=== PATIENT | female | born 1965 | race Caucasian/White ===

== ENCOUNTER 2016-09-13 07:09 | Emergency (ER) | payer MEDICARE ==
[2016-09-13 07:18] VITALS: BP 120/73; PULSE 86; RESP 20; TEMP 97.8
[2016-09-13] MEDS ORDERED: SODIUM CHLORIDE 0.9% 1,000 ML IV STA ×2 (07:41→08:08)
[2016-09-13 07:55] LABS: Basophils # (A) 0.1 k/uL (0-0.2); Basophils % (A) 1 %; CHCM 34.3; Eosinophils # (A) 0.3 k/uL (0-0.7); Eosinophils % (A) 3 %; HCT 45.4 % (34.0-46.0); HGB 15.1 gm/dL (11.4-16.0); Luc # (Auto) 0.15; Luc % (Auto) 2; Lymphocytes # (A) 1.6 k/uL (1.0-4.8); Lymphocytes % (A) 17 %; MCH 31.2 pg (25.0-35.0); MCHC 33.3 g/dL (31.0-37.0); MCV 93.7 fL (80.0-100.0); Mean Platelet Volume 6.9; Monocytes # (A) 0.5 k/uL (0-1.0); Monocytes % (A) 6 %; Neutrophils % (A) 72 %; RBC 4.85 m/uL (3.80-5.40); RDW 13.3 % (11.5-15.5); WBC 9.6 k/uL (3.8-10.6); WBC (Perox) 9.19
[2016-09-13] MEDS ORDERED: ONDANSETRON 4 MG/2 ML VIAL IVP STA (08:08)
[2016-09-13 08:09] LABS: ALT 28 U/L (9-52); AST 45 U/L (14-36); Alkaline Phosphatase 103 U/L (38-126); Amylase 60 U/L (30-110); Anion Gap 13 mmol/L; Blood Urea Nitrogen 12 mg/dL (7-17); Calcium 9.8 mg/dL (8.4-10.2); Carbon Dioxide 24 mmol/L (22-30); Chloride 103 mmol/L (98-107); Glucose 107 mg/dL (74-99); Non-African American GFR(MDRD) >60 (>60 ml/min/1.73 sqM); Sodium 140 mmol/L (137-145); Total Bilirubin 0.6 mg/dL (0.2-1.3); Total Protein 8.2 g/dL (6.3-8.2)
--- NOTE | 2016-09-13 08:21 | ED ---
Nausea/Vomiting/Diarrhea HPI - General Chief complaint: Nausea/Vomiting/Diarrhea Stated complaint: NVD X6wks Time Seen by Provider: 09/13/16 07:56 Source: patient Mode of arrival: ambulatory Limitations: no limitations - History of Present Illness Initial comments: 51 years old female presented with the vomiting every night for the last 6 weeks she also stated that she had a pretty explosive diarrhea for the last several weeks she stated she had to 10 loose stools last 48 hours she denies any recent use of antibiotics no sick contacts which she mentioned there are no sick family members at this point, complaining about her right lower quadrant pain that started 2 days ago she denies any out of country travel she denies any camping or drinking water from any straining. The fever has some chills been throwing up frequently and had explosive diarrhea over the last 6 weeks she status post hysterectomy and appendectomy. Denies any headaches no neck stiffness no chest pain or shortness of breath denies any other past medical issues - Related Data Home Medications Medication Instructions Recorded Confirmed ALPRAZolam [Xanax] 2 mg PO DAILY PRN 09/13/16 09/13/16 Estradiol [Estrace] 1 mg PO DAILY 09/13/16 09/13/16 Levothyroxine Sodium [Synthroid] 75 mcg PO DAILY 09/13/16 09/13/16 Omeprazole [PriLOSEC] 20 mg PO DAILY 09/13/16 09/13/16 Sertraline HCl [Zoloft] 100 mg PO DAILY 09/13/16 09/13/16 Sertraline HCl [Zoloft] 200 mg PO HS 09/13/16 09/13/16 Topiramate [Topamax] 100 mg PO HS 09/13/16 09/13/16 traZODone HCL 300 mg PO HS 09/13/16 09/13/16 Allergies Allergy/AdvReac Type Severity Reaction Status Date / Time acetaminophen AdvReac Nausea & Verified 09/13/16 07:54 Vomiting Review of Systems ROS Statement: Those systems with pertinent positive or pertinent negative responses have been documented in the HPI. ROS Other: All systems not noted in ROS Statement are negative. Past Medical History Past Medical History: COPD, Fibromyalgia, Thyroid Disorder Additional Past Medical History / Comment(s): back pain, sciatica History of Any Multi-Drug Resistant Organisms: None Reported Past Surgical History: Appendectomy, Hysterectomy, Orthopedic Surgery Past Psychological History: Anxiety, PTSD Smoking Status: Current every day smoker Past Alcohol Use History: Occasional Past Drug Use History: None Reported General Exam - General Exam Comments Initial Comments: General: The patient is awake and alert, in no distress, and does not appear acutely ill. Skin: Skin is warm and dry and no rashes or lesions are noted. Eye: Pupils are equal, round and reactive to light, extra-ocular movements are intact; there is normal conjunctiva bilaterally. Ears, nose, mouth and throat: There are moist mucous membranes and no oral lesions. Neck: The neck is supple, there is no tenderness Cardiovascular: There is a regular rate and rhythm. No murmur, rub or gallop is appreciated. Respiratory: To auscultation bilateral, no wheezing no rhonchi no distress respiratory saravia noticed Gastrointestinal: mildly tender in the right lower quadrant area positive bowel sounds no guarding no rebounds no signs of peritoneal irritation Back: There is no tenderness to palpation in the midline. There is no obvious deformity. Musculoskeletal: Normal ROM, no tenderness, There is no pedal edema. There is no calf tenderness or swelling. No cords were appreciated. Neurological: CN II-XII intact, Cranial nerves III through XII are intact. There are no obvious motor or sensory deficits. Coordination appears grossly intact. Speech is normal. Psychiatric: Cooperative, appropriate mood & affect, normal judgment. Limitations: no limitations Course Vital Signs 09/13/16 07:15 Temperature 97.8 F Pulse Rate 86 Respiratory 20 Rate Blood Pressure 120/73 O2 Sat by Pulse 98 Oximetry - Reevaluation(s) Reevaluation #1: 09/13/16 09:41 She was reassessed at term at 935 and numb her labs and imaging studies were discussed with the patient she wanted to do the CAT scan of the abdomen to find out why she has this abdominal pain, I agreed to proceed with a CT of the abdomen and pelvis with the IV contrast her creatinine is 0.76 09/13/16 11:04 Her labs and imaging were reviewed CT abdomen and pelvis revealed adrenal mass is 1.7 cm in size she would need follow-up with her family doctor and get a outpatient MRI of the adrenal glands done considering a diarrhea and vomiting she was referred to Dr. Eddy Mac for EGD and colonoscopy and she will bring stool samples since sobered she was unable to give a sample was she was here Medical Decision Making - Lab Data Result diagrams: 09/13/16 07:32 09/13/16 07:32 Lab Results 09/13/16 09/13/16 09/13/16 Range/Units 07:32 07:32 07:32 WBC 9.6 (3.8-10.6) k/uL RBC 4.85 (3.80-5.40) m/uL Hgb 15.1 (11.4-16.0) gm/dL Hct 45.4 (34.0-46.0) % MCV 93.7 (80.0-100.0) fL MCH 31.2 (25.0-35.0) pg MCHC 33.3 (31.0-37.0) g/dL RDW 13.3 (11.5-15.5) % Plt Count 225 (150-450) k/uL Neutrophils % 72 % Lymphocytes % 17 % Monocytes % 6 % Eosinophils % 3 % Basophils % 1 % Neutrophils # 7.0 (1.3-7.7) k/uL Lymphocytes # 1.6 (1.0-4.8) k/uL Monocytes # 0.5 (0-1.0) k/uL Eosinophils # 0.3 (0-0.7) k/uL Basophils # 0.1 (0-0.2) k/uL Sodium 140 (137-145) mmol/L Potassium 4.0 (3.5-5.1) mmol/L Chloride 103 (98-107) mmol/L Carbon Dioxide 24 (22-30) mmol/L Anion Gap 13 mmol/L BUN 12 (7-17) mg/dL Creatinine 0.76 (0.52-1.04) mg/dL Est GFR (MDRD) Af Amer >60 (>60 ml/min/1.73 sqM) Est GFR (MDRD) Non-Af >60 (>60 ml/min/1.73 sqM) Glucose 107 H (74-99) mg/dL Calcium 9.8 (8.4-10.2) mg/dL Total Bilirubin 0.6 (0.2-1.3) mg/dL AST 45 H (14-36) U/L ALT 28 (9-52) U/L Alkaline Phosphatase 103 (38-126) U/L C-Reactive Protein 17.1 H (<10.0) mg/L Total Protein 8.2 (6.3-8.2) g/dL Albumin 4.8 (3.5-5.0) g/dL Amylase 60 (30-110) U/L Lipase 58 (23-300) U/L Urine Color Urine Appearance (Clear) Urine pH (5.0-8.0) Ur Specific [place] (1.001-1.035) Urine Protein (Negative) Urine Glucose (UA) (Negative) Urine Ketones (Negative) Urine Blood (Negative) Urine Nitrite (Negative) Urine Bilirubin (Negative) Urine Urobilinogen (<2.0) mg/dL Ur Leukocyte Esterase (Negative) Urine WBC (0-5) /hpf Ur Squamous Epith Cells (0-4) /hpf Urine Bacteria (None) /hpf Urine Mucus (None) /hpf 09/13/16 Range/Units 07:50 WBC (3.8-10.6) k/uL RBC (3.80-5.40) m/uL Hgb (11.4-16.0) gm/dL Hct (34.0-46.0) % MCV (80.0-100.0) fL MCH (25.0-35.0) pg MCHC (31.0-37.0) g/dL RDW (11.5-15.5) % Plt Count (150-450) k/uL Neutrophils % % Lymphocytes % % Monocytes % % Eosinophils % % Basophils % % Neutrophils # (1.3-7.7) k/uL Lymphocytes # (1.0-4.8) k/uL Monocytes # (0-1.0) k/uL Eosinophils # (0-0.7) k/uL Basophils # (0-0.2) k/uL Sodium (137-145) mmol/L Potassium (3.5-5.1) mmol/L Chloride (98-107) mmol/L Carbon Dioxide (22-30) mmol/L Anion Gap mmol/L BUN (7-17) mg/dL Creatinine (0.52-1.04) mg/dL Est GFR (MDRD) Af Amer (>60 ml/min/1.73 sqM) Est GFR (MDRD) Non-Af (>60 ml/min/1.73 sqM) Glucose (74-99) mg/dL Calcium (8.4-10.2) mg/dL Total Bilirubin (0.2-1.3) mg/dL AST (14-36) U/L ALT (9-52) U/L Alkaline Phosphatase (38-126) U/L C-Reactive Protein (<10.0) mg/L Total Protein (6.3-8.2) g/dL Albumin (3.5-5.0) g/dL Amylase (30-110) U/L Lipase (23-300) U/L Urine Color Yellow Urine Appearance Cloudy H (Clear) Urine pH 6.0 (5.0-8.0) Ur Specific [place] 1.009 (1.001-1.035) Urine Protein Negative (Negative) Urine Glucose (UA) Negative (Negative) Urine Ketones Negative (Negative) Urine Blood Negative (Negative) Urine Nitrite Negative (Negative) Urine Bilirubin Negative (Negative) Urine Urobilinogen <2.0 (<2.0) mg/dL Ur Leukocyte Esterase Negative (Negative) Urine WBC 1 (0-5) /hpf Ur Squamous Epith Cells 3 (0-4) /hpf Urine Bacteria Rare H (None) /hpf Urine Mucus Occasional H (None) /hpf Disposition Clinical Impression: Nausea and vomiting, Diarrhea, Right lower quadrant pain, Adrenal mass Disposition: HOME SELF-CARE Condition: Good Instructions: Acute Nausea and Vomiting (ED) Referrals: Dai Ochoa DO [Primary Care Provider] - 1-2 days Sam Leon MD [STAFF PHYSICIAN] - 1-2 days
--- NOTE | 2016-09-13 08:43 | XR ---
EXAMINATION TYPE: XR chest 2V DATE OF EXAM: 09/13/2016 8:34 AM COMPARISON: NONE INDICATION: Pain diarrhea vomiting TECHNIQUE: Frontal and lateral views of the chest are obtained. FINDINGS: The heart size is normal. The pulmonary vasculature is normal. The lungs are clear. IMPRESSION: 1. No acute pulmonary process.
--- NOTE | 2016-09-13 08:43 | XR ---
EXAMINATION TYPE: XR KUB DATE OF EXAM: 09/13/2016 8:34 AM COMPARISON: NONE INDICATION: Pain diarrhea vomiting TECHNIQUE: Single view abdomen FINDINGS: There is a normal bowel gas pattern. Psoas margins are normal. No organomegaly is present. No abnormal calcifications are evident. No suspicious air-fluid levels or differential air-fluid leve ls are present. No free air is present. IMPRESSION: 1. Unremarkable Abdomen
[2016-09-13] MEDS ORDERED: RX INFO: IV CONTRAST WAS GIVEN 1 EACH MISC MISCELLANE PRN (09:42)
[2016-09-13 10:22] LABS: Appearance,Urine Cloudy (Clear); Bacteria,Urine Rare /hpf; Bilirubin,Urine Negative (Negative); Glucose,Urine (UA) Negative (Negative); Ketones,Urine Negative (Negative); Leukocyte Esterase,Urine Negative (Negative); Mucus,Urine Occasional /hpf; Nitrite,Urine Negative (Negative); Particle Count 3824; Protein,Urine Negative (Negative); Specific Gravity,Urine 1.009 (1.001-1.035); Squamous Epithelial Cell,Urine 3 /hpf (0-4); UA Billing (MACRO vs. MICRO) MICRO; Urobilinogen,Urine <2.0 mg/dL (<2.0); WBC,Urine 1 /hpf (0-5)
--- NOTE | 2016-09-13 10:33 | CT ---
EXAMINATION TYPE: CT abdomen pelvis w con DATE OF EXAM: 09/13/2016 10:20 AM HISTORY: Nausea, vomiting, and diarrhea CT DLP: 1581.3mGycm Automated Exposure Control for Dose Reduction was Utilized. CONTRAST: CT scan of the abdomen and pelvis is performed without oral but with IV Contrast, patient injected wi th 100 mL of Omnipaque 300. COMPARISON: None. FINDINGS: LUNG BASES: No significant abnormality is appreciated. LIVER/GB: No significant abnormality is appreciated. PANCREAS: No significant abnormality is seen. SPLEEN: No significant abnormality is seen. ADRENALS: There is 1.7 x 1.3 cm right adrenal mass on axial image 24, washout from 44 Hounsfield unit s to 10 Hounsfield units is noted favoring benign etiology. KIDNEYS: No significant abnormality is seen. BOWEL: No significant abnormality is seen. UTERUS/ADNEXA: Uterus is surgically absent or markedly atrophic in appearance. LYMPH NODES: No greater than 1cm abdominal or pelvic lymph nodes are appreciated. OSSEOUS STRUCTURES: No significant abnormality is seen. OTHER: Mild to minimal calcified atherotic change of the distal abdominal aorta extending to right co mmon iliac artery is present. IMPRESSION: No significant finding is seen to account for patient's clinical symptoms. No bowel obstr uction is present. There is nonspecific 1.7 cm right adrenal mass. Adrenal protocol CT or MRI can be performed to further evaluate to rule out malignant etiology.
== END 2016-09-13 11:16 | disposition home or self-care (01) ==
LOC: EC 07:09
DX: R11.2 Nausea with vomiting, unspecified (principal); R19.7 Diarrhea, unspecified; R10.31 Right lower quadrant pain; E27.9 Disorder of adrenal gland, unspecified; J44.9 Chronic obstructive pulmonary disease, unspecified; M79.7 Fibromyalgia; E07.9 Disorder of thyroid, unspecified; F41.9 Anxiety disorder, unspecified; F43.10 Post-traumatic stress disorder, unspecified; F17.200 Nicotine dependence, unspecified, uncomplicated; Z79.899 Other long term (current) drug therapy; Z79.3 Long term (current) use of hormonal contraceptives; Z88.6 Allergy status to analgesic agent; Z98.890 Other specified postprocedural states; Z90.710 Acquired absence of both cervix and uterus
CPT/HCPCS: 36415; 80053; 82150; 83690; 85025; 86140; 81001; 71020; 74000; 74177; 99284; 96374; 96361 ×4; J2405; Q9967

== ENCOUNTER → 2016-09-30 | Outpatient (CLI) | payer MEDICARE ==
--- NOTE | 2016-09-30 08:13 | MR ---
EXAMINATION TYPE: MR abdomen wo/w con DATE OF EXAM: 09/30/2016 COMPARISON: CT abdomen and pelvis September 13, 2016. HISTORY: Adrenal mass CONTRAST: Standard multiplanar, multisequence MRI departmental protocol utilizing 20 mL intravenous MultiHance gadolinium contrast. FINDINGS: Adrenals: Left adrenal gland is normal in size slight nodular thickening centrally is present. There is redemonstration of small mass posterior limb of right adrenal gland measuring 1.8 x 1.0 cm on axia l image 79 series 303. There is diffuse signal dropout on in and out of phase sequences of bilateral adrenal glands including posterior limb mass. 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 Other: Visualized lung bases are clear. There is occasional tiny thin-walled subcentimeter cysts scat tered throughout the liver. Suspect tiny dependent gallstones in gallbladder on axial image 22 series 601. No suspicious biliary dilatation is present. The pancreas, spleen, and both kidneys are felt wi thin normal limits. There is no suspicious bowel dilatation. There is no concerning abdominal fluid c ollection. Visualized osseous structures are intact. No suspicious abdominal adenopathy is seen. IMPRESSION: The 1.8 x 1.0 cm right adrenal mass has imaging characteristics consistent with benign lipid rich ward noma on MRI workup.
== END | disposition home or self-care (01) ==
LOC: RADMRIMAIN 06:38
PROVIDERS: ATTEND Family Medicine
DX: E27.9 Disorder of adrenal gland, unspecified (principal)
CPT/HCPCS: 74183; A9577

== ENCOUNTER 2016-10-09 08:38 | Emergency (ER) | payer MEDICARE ==
[2016-10-09] MEDS ORDERED: SODIUM CHLORIDE 0.9% 1,000 ML IV ONE (09:02)
[2016-10-09] MEDS ORDERED: METOCLOPRAMIDE 5 MG/ML 2 ML VIAL IVP STA (09:02)
[2016-10-09] MEDS ORDERED: KETOROLAC 30 MG/ML 1 ML VIAL IVP STA (09:02)
[2016-10-09] MEDS ORDERED: diphenhydrAMINE 50 MG/ML 1 ML VIAL IVP STA (09:02)
[2016-10-09] MEDS ORDERED: IPRATROPIUM-ALBUTEROL 3 ML NEB INHALATION STA (09:03)
--- NOTE | 2016-10-09 09:09 | ED ---
General Adult HPI - General Chief complaint: Headache Stated complaint: Headache, diarrhea Time Seen by Provider: 10/09/16 08:52 Source: patient, RN notes reviewed Mode of arrival: wheelchair Limitations: no limitations - History of Present Illness Initial comments: 51-year-old female presents emergency Department with multiple complaints. Patient states that she's been having diarrhea for the last 4-5 weeks and has been seen in emergency department and by primary care physician. Patient has had stool studies which have come back negative so far. 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 Patient states that she was given some sort of controlled substance for diarrhea but states that she is scared to take it. She has tried Imodium but states that made her feel worse. Patient denies any melena or hematochezia. Patient states he got has been darker than usual and states been urinating less. Patient denies any abdominal pain this time states she does get some crampy abdominal issues. Patient states she has not seen a GI physician for this. Patient states this morning she was walking towards her bedroom and felt very hot flush and states that she passed out. She denies any chest pain at this time. Patient states she has COPD and states that she continues to smoke and has not had any recent inhaler use or breathing treatments. Patient denies fever, chills. Patient also has that she's had a terrible headache for last few weeks has been taking Aleve [id number] with no relief. Patient denies any vomiting associated. She states she has had some nausea. Denies any blurred vision or focal weakness. Patient also complains of right foot pain. She states that she's had a fracture past and believes that she may reinjure this. - Related Data Home Medications Medication Instructions Recorded Confirmed ALPRAZolam [Xanax] 2 mg PO DAILY PRN 09/13/16 10/09/16 Estradiol [Estrace] 1 mg PO DAILY 09/13/16 10/09/16 Levothyroxine Sodium [Synthroid] 75 mcg PO DAILY 09/13/16 10/09/16 Omeprazole [PriLOSEC] 20 mg PO DAILY 09/13/16 10/09/16 Sertraline HCl [Zoloft] 100 mg PO DAILY 09/13/16 10/09/16 Sertraline HCl [Zoloft] 200 mg PO HS 09/13/16 10/09/16 Topiramate [Topamax] 100 mg PO HS 09/13/16 10/09/16 traZODone HCL 300 mg PO HS 09/13/16 10/09/16 Previous Rx's Medication Instructions Recorded Dicyclomine [Bentyl] 20 mg PO TID #30 tablet 10/09/16 Allergies Allergy/AdvReac Type Severity Reaction Status Date / Time acetaminophen AdvReac Nausea & Verified 10/09/16 10:44 Vomiting Review of Systems ROS Statement: Those systems with pertinent positive or pertinent negative responses have been documented in the HPI. ROS Other: All systems not noted in ROS Statement are negative. Past Medical History Past Medical History: COPD, Fibromyalgia, Thyroid Disorder Additional Past Medical History / Comment(s): back pain, sciatica History of Any Multi-Drug Resistant Organisms: None Reported Past Surgical History: Appendectomy, Hysterectomy, Orthopedic Surgery Past Psychological History: Anxiety, PTSD Smoking Status: Current every day smoker Past Alcohol Use History: Occasional Past Drug Use History: None Reported General Exam Limitations: no limitations General appearance: alert, in no apparent distress Head exam: Present: atraumatic, normocephalic, normal inspection Eye exam: Present: normal appearance, PERRL, EOMI. Absent: scleral icterus, conjunctival injection, periorbital swelling ENT exam: Present: normal exam, normal oropharynx, mucous membranes moist, TM's normal bilaterally, normal external ear exam Neck exam: Present: normal inspection, full ROM. Absent: tenderness, meningismus, lymphadenopathy Respiratory exam: Present: normal lung sounds bilaterally. Absent: respiratory distress, wheezes, rales, rhonchi, stridor Cardiovascular Exam: Present: regular rate, normal rhythm, normal heart sounds. Absent: systolic murmur, diastolic murmur, rubs, gallop, clicks GI/Abdominal exam: Present: soft, normal bowel sounds. Absent: distended, tenderness, guarding, rebound, rigid Extremities exam: Present: other (Right foot there is tenderness over distal third fourth and fifth metatarsal no obvious deformity no swelling no ecchymosis ) Back exam: Present: full ROM. Absent: tenderness, CVA tenderness (R), CVA tenderness (L) Neurological exam: Present: alert, oriented X3, CN II-XII intact, reflexes normal, other (Finger to nose intact bilaterally without shooting.). Absent: motor sensory deficit Skin exam: Present: warm, dry, intact, normal color. Absent: rash Course Vital Signs 10/09/16 08:45 Temperature 97.3 F L Pulse Rate 63 Respiratory 18 Rate Blood Pressure 111/67 O2 Sat by Pulse 97 Oximetry EKG Findings - EKG Comments: EKG Findings:: EKG performed at 9:42 sinus bradycardia with a rate of 50 CT 166 , QS duration 94 QT/QTc 472/4:30 Medical Decision Making - Medical Decision Making 51-year-old male present emergency department for multiple complaints. Patient' s foot x-ray shows old fracture no acute fracture. Patient has diarrhea ongoing with stool studies have showed no process. Patient has not taken Lomotil as directed. Patient states she gets abdominal cramping which she'll be given Bentyl for. Patient had possible syncopal episode today riding this is more related to fluids. Patient's EKG, chest x-ray within normal limits. Patient is requesting be discharged with time she was updated CT was within normal and blood work within normals. - Lab Data Result diagrams: 10/09/16 09:37 10/09/16 09:37 Lab Results 10/09/16 10/09/16 10/09/16 Range/Units 09:37 09:37 09:37 WBC 6.7 (3.8-10.6) k/uL RBC 4.41 (3.80-5.40) m/uL Hgb 13.4 (11.4-16.0) gm/dL Hct 40.9 (34.0-46.0) % MCV 92.8 (80.0-100.0) fL MCH 30.5 (25.0-35.0) pg MCHC 32.8 (31.0-37.0) g/dL RDW 13.0 (11.5-15.5) % Plt Count 178 (150-450) k/uL Neutrophils % 69 % Lymphocytes % 21 % Monocytes % 5 % Eosinophils % 3 % Basophils % 1 % Neutrophils # 4.6 (1.3-7.7) k/uL Lymphocytes # 1.4 (1.0-4.8) k/uL Monocytes # 0.3 (0-1.0) k/uL Eosinophils # 0.2 (0-0.7) k/uL Basophils # 0.0 (0-0.2) k/uL Sodium 141 (137-145) mmol/L Potassium 3.8 (3.5-5.1) mmol/L Chloride 108 H (98-107) mmol/L Carbon Dioxide 24 (22-30) mmol/L Anion Gap 9 mmol/L BUN 15 (7-17) mg/dL Creatinine 0.74 (0.52-1.04) mg/dL Est GFR (MDRD) Af Amer >60 (>60 ml/min/1.73 sqM) Est GFR (MDRD) Non-Af >60 (>60 ml/min/1.73 sqM) Glucose 95 (74-99) mg/dL Calcium 9.3 (8.4-10.2) mg/dL Total Bilirubin 0.5 (0.2-1.3) mg/dL AST 22 (14-36) U/L ALT 24 (9-52) U/L Alkaline Phosphatase 69 (38-126) U/L Troponin I <0.012 (0.000-0.034) ng/mL Total Protein 6.6 (6.3-8.2) g/dL Albumin 4.0 (3.5-5.0) g/dL Amylase 39 (30-110) U/L Lipase 48 (23-300) U/L Disposition Clinical Impression: Diarrhea, Headache, Foot pain Disposition: HOME SELF-CARE Condition: Stable Instructions: Acute Headache (ED), Acute Diarrhea (ED) Additional Instructions: Please return to the Emergency Department if symptoms worsen or any other concerns. Prescriptions: Dicyclomine [Bentyl] 20 mg PO TID #30 tablet Referrals: Dai Ochoa DO [Primary Care Provider] - 1-2 days Sam Leon MD [STAFF PHYSICIAN] - 1-2 days Time of Disposition: 11:23
--- NOTE | 2016-10-09 09:31 | XR ---
EXAMINATION TYPE: XR chest 2V DATE OF EXAM: 10/09/2016 HISTORY: cough, syncope. REFERENCE: Previous study dated 09/13/2016. FINDINGS: Lung volumes are mildly prominent. The lungs are clear. Pleural space are clear. Heart size is normal. IMPRESSION: NO ACUTE INTRATHORACIC ABNORMALITY.
--- NOTE | 2016-10-09 09:33 | XR ---
EXAMINATION TYPE: XR foot complete RT DATE OF EXAM ORDERED: 10/09/2016 HISTORY: Pain. COMPARISON: None. FINDINGS: There is evidence of an old, healed fracture of the right fifth metatarsal. No acute fractu re or dislocation is seen. There is a plantar calcaneal spur. IMPRESSION: 1. NO ACUTE OSSEOUS LESION. 2. EVIDENCE OF A HEALED FRACTURE OF THE FIFTH METATARSAL. 3. PLANTAR CALCANEAL SPUR.
[2016-10-09 10:13] LABS: Basophils % (A) 1 %; CH 31.7; CHCM 34.4; Eosinophils # (A) 0.2 k/uL (0-0.7); Eosinophils % (A) 3 %; HCT 40.9 % (34.0-46.0); HDW 2.66; HGB 13.4 gm/dL (11.4-16.0); Luc # (Auto) 0.09; Luc % (Auto) 1; Lymphocytes # (A) 1.4 k/uL (1.0-4.8); Lymphocytes % (A) 21 %; MCH 30.5 pg (25.0-35.0); MCHC 32.8 g/dL (31.0-37.0); MCV 92.8 fL (80.0-100.0); Mean Platelet Volume 7.2; Monocytes # (A) 0.3 k/uL (0-1.0); Monocytes % (A) 5 %; Neutrophils # (A) 4.6 k/uL (1.3-7.7); Neutrophils % (A) 69 %; RBC 4.41 m/uL (3.80-5.40); WBC 6.7 k/uL (3.8-10.6); WBC (Perox) 6.92
[2016-10-09 10:20] LABS: ALT 24 U/L (9-52); AST 22 U/L (14-36); Alkaline Phosphatase 69 U/L (38-126); Amylase 39 U/L (30-110); Anion Gap 9 mmol/L; Blood Urea Nitrogen 15 mg/dL (7-17); Calcium 9.3 mg/dL (8.4-10.2); Carbon Dioxide 24 mmol/L (22-30); Chloride 108 mmol/L (98-107); Glucose 95 mg/dL (74-99); Non-African American GFR(MDRD) >60 (>60 ml/min/1.73 sqM); Potassium 3.8 mmol/L (3.5-5.1); Sodium 141 mmol/L (137-145); Total Bilirubin 0.5 mg/dL (0.2-1.3); Total Protein 6.6 g/dL (6.3-8.2)
--- NOTE | 2016-10-09 10:57 | CT ---
EXAMINATION TYPE: CT brain wo con DATE OF EXAM: 10/09/2016 COMPARISON: NONE HISTORY: JULIEN CT DLP: 1065.1 mGycm Automated exposure control for dose reduction was used. FINDINGS: Central structures are midline. There is no evidence of hydrocephalus. No acute focal lesion, mass ef fect or midline shift is seen. I do not see evidence of intracranial blood. The orbits appear normal. Visualized portions of the paranasal sinuses and mastoids are clear. No depressed skull fracture is s een. IMPRESSION: NORMAL CT SCAN OF THE BRAIN.
[2016-10-09 14:35] VITALS: BP 126/56; PULSE 52; RESP 20; TEMP 97.7
== END 2016-10-09 11:30 | disposition home or self-care (01) ==
LOC: EC 08:38
DX: R51 Headache (principal); R19.7 Diarrhea, unspecified; M79.671 Pain in right foot; R10.9 Unspecified abdominal pain; R11.0 Nausea; F41.9 Anxiety disorder, unspecified; F43.10 Post-traumatic stress disorder, unspecified; E07.9 Disorder of thyroid, unspecified; F17.200 Nicotine dependence, unspecified, uncomplicated; Z53.20 Procedure and treatment not carried out because of patient's decision for unspecified reasons; Z79.3 Long term (current) use of hormonal contraceptives; Z79.899 Other long term (current) drug therapy; Z88.6 Allergy status to analgesic agent
CPT/HCPCS: 99284; 96374; 96375 ×2; 96361 ×2; 36415; 93005; 80053; 82150; 83690; 84484; 85025; 71020; 73630; 70450; J1200; J2765; J1885

== ENCOUNTER 2016-10-28 10:26 | Day surgery (SDC) | payer MEDICARE ==
[2016-10-26 14:35] VITALS: BMI 31.9
[~2016-10-28 10:26] MED LIST: DEXAMETHASONE SOD PHOSPHATE 10 MG/ML 1 ML VIAL IV ONE; HEPARIN SODIUM,PORCINE 5,000 UNIT/ML 1 ML VIAL SQ ONE; HYDROmorphone 1 MG/ML 1 ML SYRINGE IVP PRN; LACTATED RINGERS 1,000 ML IV ONE; MIDAZOLAM 2 MG/2 ML VIAL IV PRN; ONDANSETRON 4 MG/2 ML VIAL IVP ONE; SCOPOLAMINE 1.5MG/72HR PATCH TRANSDERM ONE; ceFAZolin 2 GM in SODIUM CHLORIDE 0.9% 100 ML IVPB ONE
--- NOTE | 2016-10-28 10:43 | P.GSHP ---
History of Present Illness H&P Date: 10/28/16 Chief Complaint: Right upper quadrant pain This a 51-year-old female who's had complaints of right quadrant pain. Her recent MRI shows evidence of cholelithiasis. She presents today for laparoscopic cholecystectomy Past Medical History Past Medical History: COPD, Fibromyalgia, GERD/Reflux, Pneumonia, Thyroid Disorder Additional Past Medical History / Comment(s): sciatica, migraines, "low BP", heart murmer, diarrhea and vomiting, gallstones, cyst on liver, bones spurs spine and feet, adrenal mass, poor vision-"needs glasses" History of Any Multi-Drug Resistant Organisms: None Reported Past Surgical History: Appendectomy, Hysterectomy, Orthopedic Surgery, Tubal Ligation Additional Past Surgical History / Comment(s): left shoulder rotator cuff Past Anesthesia/Blood Transfusion Reactions: No Reported Reaction Smoking Status: Current every day smoker - Past Family History Mother Family Medical History: Unable to Obtain Additional Family Medical History / Comment(s): adopted Medications and Allergies Home Medications Medication Instructions Recorded Confirmed Type ALPRAZolam [Xanax] 2 mg PO DAILY PRN 09/13/16 10/26/16 History Estradiol [Estrace] 1 mg PO HS 09/13/16 10/26/16 History Levothyroxine Sodium [Synthroid] 75 mcg PO HS 09/13/16 10/26/16 History Omeprazole [PriLOSEC] 20 mg PO HS 09/13/16 10/26/16 History Sertraline HCl [Zoloft] 100 mg PO DAILY 09/13/16 10/26/16 History Sertraline HCl [Zoloft] 200 mg PO HS 09/13/16 10/26/16 History Topiramate [Topamax] 100 mg PO HS 09/13/16 10/26/16 History traZODone HCL 300 mg PO 09/13/16 10/26/16 History Budesonide/Formoterol Fumarate 1 puff INHALATION BID PRN 10/26/16 10/26/16 History [Symbicort 80-4.5 Mcg Inhaler] Ipratropium/Albuterol Sulfate 2 puff INHALATION QID PRN 10/26/16 10/26/16 History [Combivent Respimat Inhaler] Tiotropium 18 Mcg/Puff [Spiriva] 1 cap INHALATION DAILY 10/26/16 10/26/16 History traMADol HCL [Ultram] 50 mg PO Q12HR PRN 10/26/16 10/26/16 History Allergies Allergy/AdvReac Type Severity Reaction Status Date / Time acetaminophen AdvReac Nausea & Verified 10/26/16 14:20 Vomiting Surgical - Exam - General well developed, no distress - Eyes PERRL - ENT normal pinna - Neck no masses - Respiratory normal expansion - Cardiovascular Rhythm: regular - Abdomen Mild right upper quadrant pain Abdomen: soft Assessment and Plan Plan: Right upper quadrant pain. We'll perform laparoscopic cholecystectomy.
[2016-10-28 11:18] VITALS: RESP 16
[2016-10-28] MEDS ORDERED: LIDOCAINE 1% 20 ML VIAL (10MG/ML) FOR IV START INTRADERMA ONE (11:29)
[2016-10-28] MEDS ORDERED: fentaNYL (PF) 50 MCG/ML 2 ML AMP ONE (11:57)
[2016-10-28] MEDS ORDERED: VECURONIUM 10 MG VIAL IV ONE (11:57)
[2016-10-28] MEDS ORDERED: MIDAZOLAM 2 MG/2 ML VIAL ONE (11:57)
[2016-10-28] MEDS ORDERED: ePHEDrine 50 MG/ML 1 ML AMP ONE (11:57)
[2016-10-28] MEDS ORDERED: PROPOFOL 10 MG/ML 20 ML VIAL IV ONE (11:57)
[2016-10-28] MEDS ORDERED: KETOROLAC 30 MG/ML 1 ML VIAL ONE (11:57)
[2016-10-28] MEDS ORDERED: LIDOCAINE 1% INJ 10MG/ML (20 ML MDV) ONE (11:57)
[2016-10-28] MEDS ORDERED: GLYCOPYRROLATE 0.2 MG/ML 2 ML VIAL ONE (11:57)
[2016-10-28] MEDS ORDERED: NEOSTIGMINE 1 MG/ML 10 ML VIAL ONE (11:57)
[2016-10-28] MEDS ORDERED: BUPIVACAIN-EPI 0.5%-1:200,000 30 ML VIAL SQ ONE (12:15)
--- NOTE | 2016-10-28 12:34 | P.OP ---
Date of Procedure: 10/28/16 Preoperative Diagnosis: Cholecystitis Postoperative Diagnosis: Cholecystitis Procedure(s) Performed: Laparoscopic cholecystectomy Implants: Anesthesia: NIELS Surgeon: Stuart Dean Estimated Blood Loss (ml): 5 Pathology: other (Gallbladder) Condition: stable Disposition: PACU Indications for Procedure: Operative Findings: Description of Procedure: The patient was placed on the operating table. The patient received a general endotracheal tube anesthesia. The patients abdomen was prepped and draped in the usual sterile fashion. Through an infraumbilical stab incision, the fascia of the anterior abdominal wall was grasped with a pair of Kochers and then the Veress needle was placed in the peritoneal cavity. Position of the Veress needle was confirmed with positive drop test. The abdomen was then insufflated. After adequate insufflation, the 10 mm trocar was placed in the peritoneal cavity. Following this the laparoscope was placed in the peritoneal cavity. The patient was placed in the head-up, right side up position and then a 5 mm trocar was placed in the right lateral and right subcostal position under direct visualization. A 8 mm trocar was placed in the epigastric position. The gallbladder was grasped in the fundus and infundibulum. Traction on the gallbladder was placed in the lateral and the cephalad positions. The triangle of Calot was visualized.. The cystic duct was bluntly dissected until the union of the cystic duct and common bile duct was seen. The cystic duct was then divided and sealed with the Harmonic scissors. A PDS Endoloop was then placed throughout the cystic duct stump. The cystic artery divided and sealed with the Harmonic scissors. The gallbladder was then removed from the liver bed using Harmonic scissors. The gallbladder was then extracted through the epigastric port site. Operative field was checked for any bleeding spots and Harmonic scissors was used to coagulate the liver bed. The abdomen was irrigated. The trocars were removed. The skin was closed using interrupted 3-0 Vicryl suture. Dermabond dressing were applied. The patient tolerated the procedure well.
[2016-10-28] MEDS ORDERED: LACTATED RINGERS 1,000 ML IV ONE ×2 (12:49)
[2016-10-28 12:54] VITALS: TEMP 97.1
[2016-10-28] MEDS: MEPERIDINE 50 MG/ML SYRINGE IVP ONE ×4 (13:06→13:22)
[2016-10-28] MEDS ORDERED: HYDROcodone/APAP 7.5-325MG 1 EACH TAB PO ONE ×2 (13:32→13:38)
[2016-10-28 14:03] VITALS: BP 99/52; PULSE 58
== END 2016-10-28 14:12 | disposition home or self-care (01) ==
LOC: OR 10:26
PROVIDERS: ATTEND Surgery
DX: K81.1 Chronic cholecystitis (principal); Z88.6 Allergy status to analgesic agent; J44.9 Chronic obstructive pulmonary disease, unspecified; F17.200 Nicotine dependence, unspecified, uncomplicated; E07.9 Disorder of thyroid, unspecified; M79.7 Fibromyalgia; K21.9 Gastro-esophageal reflux disease without esophagitis; Z79.891 Long term (current) use of opiate analgesic; Z79.51 Long term (current) use of inhaled steroids; Z79.899 Other long term (current) drug therapy
CPT/HCPCS: 88304; 47562; J2250; J1644; J1100; J2710; J2175; J0690; J2405; J2001; J3010; J1885; J2704

== ENCOUNTER 2016-11-17 11:52 | Day surgery (SDC) | payer MEDICARE ==
[2016-11-15 10:24] VITALS: BMI 30.4
[~2016-11-17 11:52] MED LIST changes: -DEXAMETHASONE SOD PHOSPHATE 10 MG/ML 1 ML VIAL IV ONE; -HEPARIN SODIUM,PORCINE 5,000 UNIT/ML 1 ML VIAL SQ ONE; -HYDROmorphone 1 MG/ML 1 ML SYRINGE IVP PRN; -LACTATED RINGERS 1,000 ML IV ONE; +LIDOCAINE 1% 20 ML VIAL (10MG/ML) FOR IV START INTRADERMA PRN; -MIDAZOLAM 2 MG/2 ML VIAL IV PRN; -ONDANSETRON 4 MG/2 ML VIAL IVP ONE; -SCOPOLAMINE 1.5MG/72HR PATCH TRANSDERM ONE; -ceFAZolin 2 GM in SODIUM CHLORIDE 0.9% 100 ML IVPB ONE
[2016-11-17 12:16] VITALS: RESP 18; TEMP 98
[2016-11-17] MEDS: LACTATED RINGERS 1,000 ML IV SCH ×2 (12:27→13:04)
[2016-11-17] MEDS ORDERED: PROPOFOL 10 MG/ML 20 ML VIAL IV ONE ×2 (13:11)
[2016-11-17] MEDS ORDERED: fentaNYL (PF) 50 MCG/ML 2 ML AMP ONE ×2 (13:11)
[2016-11-17] MEDS ORDERED: MIDAZOLAM 2 MG/2 ML VIAL ONE ×2 (13:11)
--- NOTE | 2016-11-17 13:15 | P.GSHP ---
History of Present Illness H&P Date: 11/17/16 Chief Complaint: GERD, diarrhea, abdominal pain 's is a 51-year-old female who presents today for EGD and colonoscopy. She's had issues with GERD and diarrhea. She's also had some diffuse abdominal pain. Past Medical History Past Medical History: COPD, Fibromyalgia, GERD/Reflux, Pneumonia, Thyroid Disorder Additional Past Medical History / Comment(s): sciatica, migraines, "low BP", heart murmer, diarrhea and vomiting, cyst on liver, bones spurs spine and feet, adrenal mass, poor vision-"needs glasses" History of Any Multi-Drug Resistant Organisms: None Reported Past Surgical History: Appendectomy, Cholecystectomy, Hysterectomy, Orthopedic Surgery, Tubal Ligation Past Anesthesia/Blood Transfusion Reactions: No Reported Reaction Smoking Status: Current every day smoker - Past Family History Mother History Unknown: Yes Additional Family Medical History / Comment(s): PT ADOPTED-FAMILY HX UNKNOWN Medications and Allergies Home Medications Medication Instructions Recorded Confirmed Type Estradiol [Estrace] 1 mg PO HS 09/13/16 11/17/16 History Levothyroxine Sodium [Synthroid] 75 mcg PO 09/13/16 11/17/16 History Omeprazole [PriLOSEC] 20 mg PO HS 09/13/16 11/17/16 History Sertraline HCl [Zoloft] 100 mg PO DAILY 09/13/16 11/17/16 History Sertraline HCl [Zoloft] 200 mg PO 09/13/16 11/17/16 History Topiramate [Topamax] 100 mg PO 09/13/16 11/17/16 History traZODone HCL 300 mg PO 09/13/16 11/17/16 History Budesonide/Formoterol Fumarate 1 puff INHALATION BID PRN 10/26/16 11/17/16 History [Symbicort 80-4.5 Mcg Inhaler] Ipratropium/Albuterol Sulfate 2 puff INHALATION QID PRN 10/26/16 11/17/16 History [Combivent Respimat Inhaler] Tiotropium 18 Mcg/Puff [Spiriva] 1 cap INHALATION DAILY 10/26/16 11/17/16 History traMADol HCL [Ultram] 50 mg PO Q12HR PRN 10/26/16 11/17/16 History Allergies Allergy/AdvReac Type Severity Reaction Status Date / Time acetaminophen AdvReac Nausea & Verified 11/17/16 12:03 Vomiting Surgical - Exam Vital Signs Temp Pulse Resp BP Pulse Ox 98.0 F 53 L 18 115/75 97 11/17/16 12:15 11/17/16 12:15 11/17/16 12:15 11/17/16 12:15 11/17/16 12:15 - General well developed, no distress - Eyes PERRL - ENT normal pinna - Neck no masses - Respiratory normal expansion - Cardiovascular Rhythm: regular - Abdomen Abdomen: soft, non tender Assessment and Plan Plan: GERD, diarrhea. We'll perform EGD and colonoscopy.
--- NOTE | 2016-11-17 13:35 | P.OP ---
Date of Procedure: 11/17/16 Preoperative Diagnosis: GERD Diarrhea Postoperative Diagnosis: Mild antral gastritis Mild diverticulosis Procedure(s) Performed: EGD Colonoscopy Implants: Anesthesia: MAC Surgeon: Stuart Dean Pathology: other (Antrum) Condition: stable Disposition: PACU Indications for Procedure: Operative Findings: Description of Procedure: The patient's placed on the endoscopy table in the lateral position. She received IV sedation. The gastroscope some placed oropharynx passed in the esophagus and stomach. Scope was then placed through the pylorus. The first and second portion of the duodenum appeared normal. Scope was then brought back the antrum this appeared mildly inflamed. A biopsies was performed. The scope was then brought back in then retroflexed and the remainder of the stomach appeared normal. There was no hiatal hernia. The distal esophagus appeared normal. The GE junction was at 47 is. The proximal esophagus appeared normal. Scope was withdrawn for patient. Next digital rectal exam was performed which revealed no abnormalities. The flexible colonoscope was then placed patient anus and passed throughout the entire colon. The ileocecal valve visualized. The cecum, ascending and transverse colon appeared normal. The descending and sigmoid colon was examined and there was evidence of some diverticular changes. There is no evidence of diverticulitis. The scope was then brought back the rectum and this appeared normal. Scope was withdrawn for patient.
[2016-11-17 13:51] VITALS: PULSE 59
[2016-11-17 14:17] VITALS: BP 106/55
== END 2016-11-17 14:33 | disposition home or self-care (01) ==
LOC: ORWHC2ENDO 11:52
PROVIDERS: ATTEND Surgery
DX: K29.50 Unspecified chronic gastritis without bleeding (principal); K57.30 Diverticulosis of large intestine without perforation or abscess without bleeding; K21.9 Gastro-esophageal reflux disease without esophagitis; J44.9 Chronic obstructive pulmonary disease, unspecified; M79.7 Fibromyalgia; E07.9 Disorder of thyroid, unspecified; M54.30 Sciatica, unspecified side; G43.909 Migraine, unspecified, not intractable, without status migrainosus; F39 Unspecified mood [affective] disorder; F17.200 Nicotine dependence, unspecified, uncomplicated; Z79.891 Long term (current) use of opiate analgesic; Z79.51 Long term (current) use of inhaled steroids; Z79.899 Other long term (current) drug therapy
CPT/HCPCS: 88305; 88342; 45378; 43239; J2250; J3010; J2704

== ENCOUNTER 2017-09-07 19:28 | Emergency (ER) | payer MEDICARE, OTHER ==
[2017-09-07 19:38] VITALS: BP 131/77; PULSE 80; RESP 20; TEMP 97.8
[2017-09-07] MEDS ORDERED: KETOROLAC 60 MG/2 ML VIAL IM STA (19:51)
--- NOTE | 2017-09-07 20:16 | ED ---
General Adult HPI - General Chief complaint: Extremity Injury, Lower Stated complaint: Foot Injury Time Seen by Provider: 09/07/17 19:44 Source: patient, RN notes reviewed Mode of arrival: wheelchair Limitations: no limitations - History of Present Illness Initial comments: Patient 52-year-old female presenting to the emergency room today with a chief complaint of an injury to the left foot and ankle. She does admit that she was in her garage moving a piece of sleep when it slipped coming down onto the left foot. Patient does admit to pain locally to this area. She denies any other injury or complaint. Patient denies any recent fever, chills, shortness of breath, chest pain, back pain, abdominal pain, nausea or vomiting, headaches or visual changes, or any other complaints. - Related Data Home Medications Medication Instructions Recorded Confirmed Estradiol [Estrace] 1 mg PO DAILY 09/13/16 07/27/17 Levothyroxine Sodium [Synthroid] 75 mcg PO DAILY 09/13/16 07/27/17 Omeprazole [PriLOSEC] 20 mg PO DAILY 09/13/16 07/27/17 Sertraline HCl [Zoloft] 100 mg PO DIRECTED 09/13/16 07/27/17 Topiramate [Topamax] 100 mg PO HS 09/13/16 07/27/17 traZODone HCL 150 - 300 mg PO HS 09/13/16 07/27/17 Budesonide/Formoterol Fumarate 1 puff INHALATION RT-BID 10/26/16 07/27/17 [Symbicort 80-4.5 Mcg Inhaler] Ipratropium/Albuterol Sulfate 2 puff INHALATION RT-QID PRN 10/26/16 07/27/17 [Combivent Respimat Inhaler] Tiotropium 18 Mcg/Puff [Spiriva] 1 cap INHALATION RT-DAILY 10/26/16 07/27/17 Escitalopram [Lexapro] 20 mg PO DAILY 07/27/17 07/27/17 Naproxen Sodium [Aleve] 220 mg PO BID PRN 07/27/17 07/27/17 Neomycin/Bacitracin/Polymyxinb 1 applic TOPICAL DAILY PRN 07/27/17 07/27/17 [Neosporin Ointment] Previous Rx's Medication Instructions Recorded Cephalexin [Keflex] 500 mg PO Q12HR 10 Days cap 07/27/17 Escitalopram [Lexapro] 2 tab PO DAILY #20 tablet 07/27/17 Ibuprofen [Motrin] 600 mg PO Q6HR PRN #40 day 09/07/17 Allergies Allergy/AdvReac Type Severity Reaction Status Date / Time acetaminophen AdvReac Nausea & Verified 09/07/17 19:38 Vomiting Review of Systems ROS Statement: Those systems with pertinent positive or pertinent negative responses have been documented in the HPI. ROS Other: All systems not noted in ROS Statement are negative. Past Medical History Past Medical History: COPD, Fibromyalgia, GERD/Reflux, Pneumonia, Thyroid Disorder Additional Past Medical History / Comment(s): sciatica, migraines, "low BP", heart murmer, diarrhea and vomiting, cyst on liver, bones spurs spine and feet, adrenal mass, poor vision-"needs glasses" History of Any Multi-Drug Resistant Organisms: None Reported Past Surgical History: Appendectomy, Cholecystectomy, Hysterectomy, Orthopedic Surgery, Tubal Ligation Past Anesthesia/Blood Transfusion Reactions: No Reported Reaction Past Psychological History: Anxiety, Depression, Panic Disorder, PTSD Smoking Status: Current every day smoker Past Alcohol Use History: Occasional Past Drug Use History: Marijuana - Past Family History Mother Additional Family Medical History / Comment(s): adopted General Exam - General Exam Comments Initial Comments: General: The patient is awake and alert, in no distress, and does not appear acutely ill. Eye: Pupils are equal, round and reactive to light, extra-ocular movements are intact. No nystagmus. There is normal conjunctiva bilaterally. No signs of icterus. Ears, nose, mouth and throat: There are moist mucous membranes and no oral lesions. Neck: The neck is supple, there is no tenderness or JVD. Musculoskeletal: Patient shows good range of motion. Does have some mild tenderness over the lateral malleolus. No tenderness over the medial malleolus of the left ankle. Patient does have tenderness over the proximal metatarsals. Sensations intact. Pedal pulse 2+. Neurological: A&O x 3. CN II-XII intact, There are no obvious motor or sensory deficits. Coordination appears grossly intact. Speech is normal. Skin: Skin is warm and dry and no rashes or lesions are noted. Psychiatric: Cooperative, appropriate mood & affect, normal judgment. Limitations: no limitations Course Vital Signs 09/07/17 19:34 Temperature 97.8 F Pulse Rate 80 Respiratory 20 Rate Blood Pressure 131/77 O2 Sat by Pulse 96 Oximetry Medical Decision Making - Medical Decision Making X-ray reviewed negative for any acute fracture dislocation. Results were discussed with the patient. Patient is advised to continue ice elevate the affected area. Advised continue ibuprofen. Advised to follow-up in 7-10 days for repeat x-rays if symptoms persist. Disposition Clinical Impression: Foot contusion Disposition: HOME SELF-CARE Condition: Good Instructions: Foot Contusion (ED) Additional Instructions: Please continue to ice elevate the affected area as discussed. Please use ibuprofen for pain. Please follow-up in 7-10 days for repeat x-rays if symptoms persist. Prescriptions: Ibuprofen [Motrin] 600 mg PO Q6HR PRN #40 day PRN Reason: Pain Is patient prescribed a controlled substance at d/c from ED?: No Referrals: Sharon Murrell MD [Primary Care Provider] - 1-2 days Logan Lee DO [Doctor of Osteopathic Medicine] - 1-2 days Time of Disposition: 20:31
--- NOTE | 2017-09-07 20:26 | XR ---
EXAMINATION TYPE: XR ankle complete LT DATE OF EXAM: 09/07/2017 COMPARISON: NONE HISTORY: Pain and injury TECHNIQUE: 3 views FINDINGS: Ankle mortise is anatomic. I see no fracture nor dislocation. There are plantar and Shelly s calcaneal spurs. Joint spaces are fairly normal. IMPRESSION: No acute abnormality of the left ankle.
--- NOTE | 2017-09-07 20:28 | XR ---
EXAMINATION TYPE: XR foot complete LT DATE OF EXAM: 09/07/2017 COMPARISON: NONE HISTORY: Foot pain TECHNIQUE: 3 views FINDINGS: Metatarsals appear intact. I see no fracture nor dislocation. There are no erosions. There is are plantar and Achilles calcaneal spurs. IMPRESSION: Calcaneal spurring. No fracture.
== END 2017-09-07 20:33 | disposition home or self-care (01) ==
LOC: EC 19:28
DX: S90.32XA Contusion of left foot, initial encounter (principal); S99.912A Unspecified injury of left ankle, initial encounter; J44.9 Chronic obstructive pulmonary disease, unspecified; K21.9 Gastro-esophageal reflux disease without esophagitis; E07.9 Disorder of thyroid, unspecified; F32.9 Major depressive disorder, single episode, unspecified; F41.0 Panic disorder [episodic paroxysmal anxiety]; F43.10 Post-traumatic stress disorder, unspecified; F17.200 Nicotine dependence, unspecified, uncomplicated; Z79.51 Long term (current) use of inhaled steroids; Z79.899 Other long term (current) drug therapy; Z88.8 Allergy status to other drugs, medicaments and biological substances; Z86.69 Personal history of other diseases of the nervous system and sense organs; W20.8XXA Other cause of strike by thrown, projected or falling object, initial encounter; Y93.89 Activity, other specified; Y92.015 Private garage of single-family (private) house as the place of occurrence of the external cause
CPT/HCPCS: 73610; 73630; 99283; 96372; J1885

== ENCOUNTER 2018-02-08 09:30 | Emergency (ER) | payer MEDICARE ==
[2018-02-08 09:42] VITALS: RESP 18
[2018-02-08] MEDS ORDERED: KETOROLAC 60 MG/2 ML VIAL IM STA (10:11)
[2018-02-08] MEDS ORDERED: methylPREDNISolone SOD SUCCI 125 MG/2 ML VIAL IM ONE (10:11)
[2018-02-08] MEDS ORDERED: ORPHENADRINE 30 MG/ML 2 ML VIAL IM STA (10:11)
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
--- NOTE | 2018-02-08 10:54 | XR ---
EXAMINATION TYPE: XR lumbar spine 2 or 3V DATE OF EXAM: 02/08/2018 CLINICAL HISTORY: Chronic low back pain TECHNIQUE: Frontal and lateral images of the lumbar spine are obtained. COMPARISON: CT abdomen pelvis dated 09/13/2016 FINDINGS: There is a very mild levoscoliosis of the lumbar spine may could be positional. There are 5 lumbar type vertebral bodies identified. The lumbar spine shows satisfactory alignment without jami dence of acute fracture or dislocation. Vertebral body heights and disk space heights are within norm al limits. Mild multilevel degenerative disc disease is seen as small anterior osteophytes and interv ertebral disc space narrowing at L1-L2 as well as facet arthropathy from L3 through S1. The overlyin g soft tissue appears unremarkable. IMPRESSION: No acute fracture or malalignment is seen in the lumbar spine. Mild multilevel degenerat esther disc disease of the lumbar spine. Minimal levoscoliosis that may be positional in nature.
[2018-02-08 11:32] VITALS: BP 112/65; PULSE 78; TEMP 97
[2018-02-08 11:32] LABS: Glucose,Whole Blood 86 mg/dL (75-99)
== END 2018-02-08 11:32 | disposition home or self-care (01) ==
LOC: EC 09:30
DX: M51.16 Intervertebral disc disorders with radiculopathy, lumbar region (principal); M79.7 Fibromyalgia; G43.909 Migraine, unspecified, not intractable, without status migrainosus; F32.9 Major depressive disorder, single episode, unspecified; F41.9 Anxiety disorder, unspecified; F43.10 Post-traumatic stress disorder, unspecified; F17.200 Nicotine dependence, unspecified, uncomplicated; Z79.818 Long term (current) use of other agents affecting estrogen receptors and estrogen levels; Z79.899 Other long term (current) drug therapy; Z88.6 Allergy status to analgesic agent
CPT/HCPCS: 36415; 72100; 99284; 96372 ×3; J2360; J2930; J1885

== ENCOUNTER 2018-03-10 08:41 | Emergency (ER) | payer MEDICARE ==
[2018-03-10 08:48] VITALS: BP 125/78; PULSE 69; RESP 18; TEMP 97.4
[2018-03-10] MEDS ORDERED: LIDOCAINE 5% PATCH TOPICAL STA (09:11)
--- NOTE | 2018-03-10 09:23 | ED ---
General Adult HPI - General Chief complaint: Back Pain/Injury Stated complaint: back & neck pain Time Seen by Provider: 03/10/18 08:54 Source: patient, RN notes reviewed, old records reviewed Mode of arrival: wheelchair Limitations: no limitations - History of Present Illness Initial comments: Patient 52-year-old female presenting to the emergency room today with a chief complaint of back pain. Patient does admit to a history of chronic back pain. States her last several months and worse. Doesn't that she's had left-sided sciatic pain going down to the foot at times. Patient states that she was seen here in the emergency room had x-rays about a month ago. States she has followed up with the orthopedic doctor was advised to have an MRI. She states MRI was not improved by her insurance. She states she struck get back in to see the orthopedic doctor. Patient states still having pain but does not have any pain medication at home. His been using Aleve with little relief. Denies any bowel or bladder incontinence retention. Denies any saddle anesthesia. Patient denies any recent fever, chills, shortness of breath, chest pain, abdominal pain, nausea or vomiting, headaches or visual changes, or any other complaints. - Related Data Home Medications Medication Instructions Recorded Confirmed Estradiol [Estrace] 1 mg PO DAILY 09/13/16 02/08/18 Omeprazole [PriLOSEC] 20 mg PO DAILY PRN 09/13/16 02/08/18 Sertraline HCl [Zoloft] 100 mg PO DAILY 09/13/16 02/08/18 Topiramate [Topamax] 50 mg PO HS 09/13/16 02/08/18 traZODone HCL 150 mg PO HS 09/13/16 02/08/18 Previous Rx's Medication Instructions Recorded Cyclobenzaprine [Flexeril] 10 mg PO TID #12 tab 02/08/18 Dexamethasone 0.75 mg PO DAILY #12 tab 02/08/18 Naproxen 500 mg PO BID #20 tablet 02/08/18 Cyclobenzaprine [Flexeril] 10 mg PO TID #20 tab 03/10/18 Dexamethasone 0.75 mg PO DIRECTED #12 tablet 03/10/18 Lidocaine [Lidoderm 5% Patch] 1 patch TRANSDERM DAILY #7 patch 03/10/18 Naproxen [Naprosyn] 500 mg PO BID #20 tablet 03/10/18 Allergies Allergy/AdvReac Type Severity Reaction Status Date / Time acetaminophen AdvReac Nausea & Verified 03/10/18 08:48 Vomiting Review of Systems ROS Statement: Those systems with pertinent positive or pertinent negative responses have been documented in the HPI. ROS Other: All systems not noted in ROS Statement are negative. Past Medical History Past Medical History: COPD, Fibromyalgia, GERD/Reflux, Pneumonia, Thyroid Disorder Additional Past Medical History / Comment(s): sciatica, migraines, "low BP", heart murmer, diarrhea and vomiting, cyst on liver, bones spurs spine and feet, adrenal mass, poor vision-"needs glasses" History of Any Multi-Drug Resistant Organisms: None Reported Past Surgical History: Appendectomy, Cholecystectomy, Hysterectomy, Orthopedic Surgery, Tubal Ligation Past Anesthesia/Blood Transfusion Reactions: No Reported Reaction Past Psychological History: Anxiety, Depression, Panic Disorder, PTSD Smoking Status: Current every day smoker Past Alcohol Use History: Occasional Past Drug Use History: Marijuana - Past Family History Mother Additional Family Medical History / Comment(s): adopted General Exam - General Exam Comments Initial Comments: General: The patient is awake and alert, in no distress, and does not appear acutely ill. Eye: Pupils are equal, round and reactive to light. Extra-ocular movements are intact. No nystagmus. There is normal conjunctiva bilaterally. No signs of icterus. Ears, nose, mouth and throat: There are moist mucous membranes and no oral lesions. Neck: The neck is supple, there is no tenderness or JVD. Cardiovascular: There is a regular rate and rhythm. No murmur, rub or gallop is appreciated. Respiratory: Lungs are clear to auscultation, respirations are non-labored, breath sounds are equal. No wheezes, stridor, rales, or rhonchi. Musculoskeletal: Normal ROM. Mild tenderness lower lumbar on the right side. Acutely. No step-off or deformity. Sensation intact. Strength 5/5. Pulses equal bilaterally 2+. Neurological: A&O x 3. CN II-XII intact, There are no obvious motor or sensory deficits. Coordination appears grossly intact. Speech is normal. Skin: Skin is warm and dry and no rashes or lesions are noted. Psychiatric: Cooperative, appropriate mood & affect, normal judgment. Limitations: no limitations Course Vital Signs 03/10/18 08:43 Temperature 97.4 F L Pulse Rate 69 Respiratory 18 Rate Blood Pressure 125/78 O2 Sat by Pulse 99 Oximetry Medical Decision Making - Medical Decision Making Patient does not that she's had these symptoms are last several months. There is no bowel bladder incontinence retention. No saddle anesthesia. Patient has been following up with orthopedics. Advised patient and recommended MRI of the ER. Patient will be treated symptomatically. Given Lidoderm patch or the emergency room. Continue on anti-inflammatories for pain. Will be started on a steroid Dosepak along with a muscle laxer for her symptoms. Advised that the muscle laxer may make her drowsy. Advised to follow-up the family physician/ orthopedic or the next 2-5 days. Advised return if any symptoms increase or worsen. Disposition Clinical Impression: Acute exacerbation of chronic low back pain Disposition: HOME SELF-CARE Condition: Good Instructions: Acute Low Back Pain (ED) Additional Instructions: Please use medication as discussed. Please follow-up with orthopedic/family doctor in the next 25 days.. Please return to emergency room if the symptoms increase or worsen or for any other concerns. Prescriptions: Cyclobenzaprine [Flexeril] 10 mg PO TID #20 tab Dexamethasone 0.75 mg PO DIRECTED #12 tablet Lidocaine [Lidoderm 5% Patch] 1 patch TRANSDERM DAILY #7 patch Naproxen [Naprosyn] 500 mg PO BID #20 tablet Is patient prescribed a controlled substance at d/c from ED?: No Referrals: Sharon Murrell MD [Primary Care Provider] - 1-2 days Time of Disposition: 09:21
== END 2018-03-10 10:34 | disposition home or self-care (01) ==
LOC: EC 08:41
DX: G89.29 Other chronic pain (principal); M54.5 Low back pain; M54.2 Cervicalgia; M79.7 Fibromyalgia; G43.909 Migraine, unspecified, not intractable, without status migrainosus; F41.9 Anxiety disorder, unspecified; F32.9 Major depressive disorder, single episode, unspecified; F43.10 Post-traumatic stress disorder, unspecified; F17.200 Nicotine dependence, unspecified, uncomplicated; Z79.899 Other long term (current) drug therapy; Z88.6 Allergy status to analgesic agent
CPT/HCPCS: 99283

== ENCOUNTER 2022-12-23 11:05 | Emergency (ER) | payer MEDICARE, OTHER ==
[2022-12-23 11:14] VITALS: RESP 18
[2022-12-23] MEDS ORDERED: KETOROLAC 15 MG/ML 1 ML VIAL IM STA (11:26)
[2022-12-23] MEDS ORDERED: LIDOCAINE 5% PATCH TOPICAL SCH (11:30)
--- NOTE | 2022-12-23 11:48 | ED ---
General Adult HPI - General Chief complaint: Back Pain/Injury Stated complaint: fall-back/neck pain Time Seen by Provider: 12/23/22 11:16 Source: patient, RN notes reviewed Mode of arrival: ambulatory Limitations: no limitations - History of Present Illness Initial comments: 57-year-old female with past medical history significant for chronic back pain presents to the emergency department with a chief complaint of fall. Patient reports that 4 days ago she was attempting to get out of bed. She has been experiencing numbness and tingling in bilateral upper and lower extremities which caused her to fall. She denies hitting her head, loss of consciousness, anticoagulant use. She is still feeling a tingling sensation in her upper arms. She is complaining of neck pain that is worse with movement that radiates into her trapezius muscles. She's been taking Aleve at home without symptomatic relief. Denies dizziness, lightheadedness, vision changes, vision loss, headache. - Related Data Home Medications Medication Instructions Recorded Confirmed Omeprazole [PriLOSEC] 20 mg PO DAILY PRN 09/13/16 02/08/18 Sertraline HCl [Zoloft] 100 mg PO DAILY 09/13/16 02/08/18 Topiramate [Topamax] 50 mg PO HS 09/13/16 02/08/18 estradioL [Estrace] 1 mg PO DAILY 09/13/16 02/08/18 traZODone HCL 150 mg PO HS 09/13/16 02/08/18 Previous Rx's Medication Instructions Recorded Cyclobenzaprine [Flexeril] 10 mg PO TID #12 tab 02/08/18 Naproxen 500 mg PO BID #20 tablet 02/08/18 dexAMETHasone [Decadron] 0.75 mg PO DAILY #12 tab 02/08/18 Cyclobenzaprine [Flexeril] 10 mg PO TID #20 tab 03/10/18 Lidocaine [Lidoderm 5% Patch] 1 patch TRANSDERM DAILY #7 patch 03/10/18 Naproxen [Naprosyn] 500 mg PO BID #20 tablet 03/10/18 dexAMETHasone [Decadron] 0.75 mg PO DIRECTED #12 tablet 03/10/18 Lidocaine 5% Patch [Lidoderm 5% 1 patch TOPICAL DAILY #5 patch 12/23/22 Patch] Allergies Allergy/AdvReac Type Severity Reaction Status Date / Time acetaminophen AdvReac Nausea & Verified 12/23/22 11:13 Vomiting Review of Systems ROS Statement: Those systems with pertinent positive or pertinent negative responses have been documented in the HPI. ROS Other: All systems not noted in ROS Statement are negative. Past Medical History Past Medical History: COPD, Fibromyalgia, GERD/Reflux, Pneumonia, Thyroid Disorder Additional Past Medical History / Comment(s): sciatica, migraines, "low BP", heart murmer, diarrhea and vomiting, cyst on liver, bones spurs spine and feet, adrenal mass, poor vision-"needs glasses", cushings disease, History of Any Multi-Drug Resistant Organisms: None Reported Past Surgical History: Appendectomy, Cholecystectomy, Hysterectomy, Orthopedic Surgery, Tubal Ligation Past Anesthesia/Blood Transfusion Reactions: No Reported Reaction Past Psychological History: Anxiety, Depression, Panic Disorder, PTSD Smoking Status: Current every day smoker Past Alcohol Use History: Occasional Past Drug Use History: Marijuana - Past Family History Mother Additional Family Medical History / Comment(s): adopted General Exam - General Exam Comments Initial Comments: General: Alert, in no acute distress Head: atraumatic normocephalic. Eyes PERRL, EOMI intact, mucous membranes moist Respiratory: Lungs clear to auscultation bilaterally Cardiovascular: Heart rate regular rate and rhythm Abdominal: Soft without guarding or rebound Extremities: Normal inspection with full range of motion and normal capillary refill Neuroogic: alert and oriented 3, CN II-XII intact, able to ambulate with steady gait, sensation remains intact in bilateral upper and lower extremities. Full range of motion. Skin: warm dry and intact with normal color Limitations: no limitations Course Vital Signs 12/23/22 12/23/22 12/23/22 11:07 12:36 13:08 Temperature 98.0 F 98 F 98 F Pulse Rate 63 65 67 Respiratory 18 18 18 Rate Blood Pressure 140/92 146/91 141/87 O2 Sat by Pulse 99 98 98 Oximetry - Reevaluation(s) Reevaluation #1: 12/23/22 12:57 [address]eval[address]. Discuss[address] CT results with patient. Patient offered steroids upon discharge however she declined. Medical Decision Making - Medical Decision Making Was pt. sent in by a medical professional or institution (, PA, FOLDING MACHINE OPERATOR, urgent care, hospital, or correction...) When possible be specific @ -[No] Did you speak to anyone other than the patient for history (EMS, parent, family, police, friend...)? What history was obtained from this source @ -[No] Did you review nursing and triage notes (agree or disagree)? Why? @ -[I reviewed and agree with nursing and triage notes] Were old charts reviewed (outside hosp., previous admission, EMS record, old EKG, old radiological studies, urgent care reports/EKG's, correction records)? Report findings @ -[No old charts were reviewed] Differential Diagnosis (chest pain, altered mental status, abdominal pain women, abdominal pain men, vaginal bleeding, weakness, fever, dyspnea, syncope, headache, dizziness, GI bleed, back pain, seizure, CVA, palpatations, mental health, musculoskeletal)? @ -[not applicable] EKG interpreted by me (3pts min.). @ -[As above] X-rays interpreted by me (1pt min.). @ -[None done] CT interpreted by me (1pt min.). @ - U/S interpreted by me (1pt. min.). @ -[None done] What testing was considered but not performed or refused? (CT, X-rays, U/S, labs)? Why? @ -[None] What meds were considered but not given or refused? Why? @ -[None] Did you discuss the management of the patient with other professionals (professionals i.e. , PA, FOLDING MACHINE OPERATOR, lab, RT, psych nurse, psychotherapist social worker, interlocking installer, teacher, flight radio officer, director of casework department)? Give summary @ -[No] Was smoking cessation discussed for >3mins.? @ -[No] Was critical care preformed (if so, how long)? @ -[No] Were there social determinants of health that impacted care today? How? (Homelessness, low income, unemployed, alcoholism, drug addiction, transportation, low edu. Level, literacy, decrease access to med. care, longterm, rehab)? @ -[No] Was there de-escalation of care discussed even if they declined (Discuss DNR or withdrawal of care, Hospice)? DNR status @ -[No] What co-morbidities impacted this encounter? (DM, HTN, Smoking, COPD, CAD, Cancer, CVA, ARF, Chemo, Hep., AIDS, mental health diagnosis, sleep apnea, morbid obesity)? @ -[None] Was patient admitted / discharged? Hospital course, mention meds given and route, prescriptions, significant lab abnormalities, going to OR and other pertinent info. @ -Discharged. This is a pleasant 57-year-old female presents the emergency department with neck pain after a fall. Patient had a thorough history and physical exam performed while in the ED. Unremarkable. There are no focal neurologic deficits noted on exam patient is able to move all extremities freely. Sensation remains intact. Heart rate regular rate and rhythm, lungs clear to auscultation bilaterally. Patient had CT imaging performed was negative for any acute fracture or dislocation. I discussed the results in detail with the patient verbalized understanding all questions were addressed. She was provided Toradol and Lidoderm patch with symptomatic relief in the ED. Return precautions were discussed at length and patient verbalized understanding. Patient discharged in stable condition. Case discussed with Dr. Washington [facility] who agrees with plan of care Undiagnosed new problem with uncertain prognosis? @ -[No] Drug Therapy requiring intensive monitoring for toxicity (Heparin, Nitro, Insulin, Cardizem)? @ -[No] Were any procedures done? @ -[No] Diagnosis/symptom? @ -Neck Pain - Fall from Ground Level Acute, or Chronic, or Acute on Chronic? @ -Acute on Chronic Uncomplicated (without systemic symptoms) or Complicated (systemic symptoms)? @ -Uncomplicated Side effects of treatment? @ -[No] Exacerbation, Progression, or Severe Exacerbation? @ -[No] Poses a threat to life or bodily function? How? (Chest pain, [place], SD, pneumonia, PE, COPD, DKA, ARF, appy, cholecystitis, CVA, Diverticulitis, Homicidal, Suicidal, threat to staff... and all critical care pts) @ -Low likelihood Disposition Clinical Impression: Neck pain, Radiculopathy Disposition: HOME SELF-CARE Condition: Stable Instructions (If sedation given, give patient instructions): Neck Pain (ED), Chronic Neck Pain (DC) Additional Instructions: Please take Tylenol Motrin for pain apply numbing patches as needed These return to the nearest emergency department if symptoms worsen or persist Prescriptions: Lidocaine 5% Patch [Lidoderm 5% Patch] 1 patch TOPICAL DAILY #5 patch Is patient prescribed a controlled substance at d/c from ED?: No Referrals: Filippo Wise, [Primary Care Provider] - 1-2 days Jose Guadalupe Hwang DO [Doctor of Osteopathic Medicine] - 1-2 days Time of Disposition: 12:48
--- NOTE | 2022-12-23 12:30 | CT ---
EXAMINATION TYPE: CT cervical spine wo con DATE OF EXAM: 12/23/2022 COMPARISON: None HISTORY: 57-year-old female neck pain, numbness, worse after fall TECHNIQUE: Contiguous axial scanning of the cervical spine without IV contrast. Coronal and sagittal reconstructions performed. CT DLP: 505.5 mGycm Automated exposure control for dose reduction was used. FINDINGS: Mild emphysematous change in the visualized upper lungs. No craniocervical junction everybody, predental space widening, or prevertebral soft tissue swelling. Mild degenerative change of the C1 dens articulation. Moderate disc/endplate degenerative change C5-C7 levels with disc space narrowing, endplate irregular ity, and disc osteophyte complex formation. No acute fracture of the cervical spine. Alignment is maintained. This contribute to at least moderate spinal canal stenosis at C5-C6 and possibly moderate to severe s nori canal stenosis at C6-C7. This can be further evaluated with cervical spine MRI. Scattered facet and uncovertebral joint arthropathy. This results in variable mild neural foraminal n arrowing, more moderate on the right at C5-C6 and on both sides at C6-C7. IMPRESSION: 1. MODERATE SPONDYLOTIC CHANGE C5-C7 LEVELS. NO ACUTE FRACTURE OR MALALIGNMENT. 2. SUSPECT AT LEAST MODERATE SPINAL CANAL STENOSIS AT C5-C6 AND POSSIBLY MODERATE TO SEVERE SPINAL CA NAL STENOSIS AT C6/C7 SECONDARY TO DISC OSTEOPHYTE COMPLEX. IF CLINICALLY INDICATED, THIS CAN BE FURT HER EVALUATED WITH CERVICAL SPINE MRI. 3. VARIABLE MILD NEUROFORAMINAL NARROWING THROUGHOUT, MORE MODERATE ON THE RIGHT AT C5-C6 AND ON BOTH SIDES AT C6-C7. 4. COPD IN THE VISUALIZED UPPER LUNGS.
[2022-12-23 12:37] VITALS: TEMP 98
[2022-12-23 13:10] VITALS: BP 141/87; PULSE 67
== END 2022-12-23 13:10 | disposition home or self-care (01) ==
LOC: EC 11:05
DX: M54.2 Cervicalgia (principal); M54.12 Radiculopathy, cervical region; J44.9 Chronic obstructive pulmonary disease, unspecified; K21.9 Gastro-esophageal reflux disease without esophagitis; F41.9 Anxiety disorder, unspecified; F32.A Depression, unspecified; F17.200 Nicotine dependence, unspecified, uncomplicated; F12.90 Cannabis use, unspecified, uncomplicated; Z88.8 Allergy status to other drugs, medicaments and biological substances; Z79.899 Other long term (current) drug therapy; W06.XXXA Fall from bed, initial encounter
CPT/HCPCS: 99284; 96372; 72125; J1885

== ENCOUNTER → 2023-01-23 | Outpatient (CLI) | payer MEDICARE, OTHER ==
--- NOTE | 2023-01-23 07:46 | XR ---
EXAMINATION TYPE: XR Hip Bilateral and AP pelvis DATE OF EXAM: 01/23/2023 7:34 AM CLINICAL INDICATION:Female, 57 years old with history of M25.552; PHH COMPARISON: None. TECHNIQUE: hip was examined in the frontal and lateral projections and a AP pelvis. FINDINGS: No evidence for acute process, joint dislocation or significant soft tissue swelling. Osteo phyte formation of the superior acetabulum of the hips. IMPRESSION: 1. No evidence for acute process. 2. Mild bilateral hip osteoarthrosis.
--- NOTE | 2023-01-23 13:57 | MR ---
EXAMINATION TYPE: MR cspine/lspine wo con DATE OF EXAM: 01/23/2023 7:01 AM CLINICAL INDICATION:Female, 57 years old with history of M25.511 Pain in right shoulder; PHH, Neck pa in, headaches, LBP, BUE/LLE radiculopathy. COMPARISON: CT abdomen 09/13/2016 TECHNIQUE: Multi planar, multi sequence imaging was performed utilizing: T1-weighted, T2-weighted, a nd turbo inversion recovery imaging of the cervical and lumbar spine. MR contrast: IV Contrast: None. FINDINGS: CERVICAL: Alignment: The cervical vertebral bodies have preserved heights. Alignment is within normal limits gi sandro patient positioning. Bones: Scattered Modic endplate changes with osteophytes and disc space narrowing. Multilevel degener ative disc disease is noted and most pronounced at the C5-C7 vertebral levels. Cord: The spinal cord is unremarkable with regards to their signal intensity and morphology. Discs: Multilevel disc desiccation is present. C2-C3: No significant disc pathology. The spinal canal is patent. Bilateral facet and uncovertebral joint arthropathy are present with mild left neural foraminal stenosis. The right neural foramen is p atent. C3-C4: No significant disc pathology. The spinal canal is patent. No neural foraminal stenosis. C4-C5: No significant disc pathology. The spinal canal is patent. Bilateral facet and uncovertebral joint arthropathy are present with mild right neural foraminal stenosis. The left neural foramen is p atent. C5-C6: A disc osteophyte complex is present with mild to moderate spinal canal stenosis. Spinal cord signal is maintained. Bilateral facet and uncovertebral joint arthropathy are present with moderate right and mild left neural foraminal stenosis. C6-C7: A disc osteophyte complex is present with mild spinal canal stenosis. Bilateral facet and unc overtebral joint arthropathy are present with mild to moderate bilateral neural foraminal stenosis. C7-T1: No significant disc pathology. The spinal canal is patent. No neural foraminal stenosis. Other: None. Mild degeneration changes throughout the cervical spine with neural foraminal stenosis worse at C5-6 with moderate right neural foraminal stenosis. Additionally there is mild to moderate spinal canal st enosis C5-C6. LUMBAR: Alignment: The lumbar vertebral bodies have preserved heights and alignment. Cord: The conus medullaris and the distal spinal cord appear unremarkable with regards to their signa l intensity and morphology. Bones/Discs: Bone signal is within normal limits. Mild degeneration changes throughout the spine with osteophyte formation. Mild facet arthropathy. Multilevel disc signal is maintained T12-L1: No evidence of significant spinal canal stenosis or neural foraminal stenosis. L1-L2: No evidence of significant spinal canal stenosis or neural foraminal stenosis. L2-L3: No evidence of significant spinal canal stenosis or neural foraminal stenosis. L3-L4: No evidence of significant spinal canal stenosis or neural foraminal stenosis. L4-L5: Disc bulge and facet joint arthropathy result in mild spinal canal and mild bilateral neural f oraminal stenosis. L5-S1: The disc is rounded posterior morphology without significant spinal canal stenosis. Facet join t arthropathy with mild neural foraminal stenosis. Other findings: None. IMPRESSION: 1. No definitive evidence of disc herniation or significant spinal canal stenosis in the cervical or lumbar spine.. 2. Mild degeneration changes throughout the cervical spine with neural foraminal stenosis worse at C 5-6 with moderate right neural foraminal stenosis. Additionally there is mild to moderate spinal willi l stenosis C5-C6. 3. Mild degeneration changes of the lumbar spine without significant neural foraminal or spinal willi l stenosis.
== END | disposition home or self-care (01) ==
LOC: RADMRIMAIN 05:56
PROVIDERS: ATTEND Neurological Surgery
DX: M47.12 Other spondylosis with myelopathy, cervical region (principal); M16.0 Bilateral primary osteoarthritis of hip; M47.812 Spondylosis without myelopathy or radiculopathy, cervical region; M99.71 Connective tissue and disc stenosis of intervertebral foramina of cervical region; M48.02 Spinal stenosis, cervical region; M25.511 Pain in right shoulder
CPT/HCPCS: 72141; 72148; 73521

== ENCOUNTER 2023-07-16 08:40 | Observation (INO) | payer MEDICARE, OTHER ==
--- NOTE | 2023-07-16 09:23 | ED ---
Fall HPI - General Chief Complaint: Fall Stated Complaint: FALL, Hit Head Time Seen by Provider: 07/16/23 08:44 Source: patient, EMS, RN notes reviewed Mode of arrival: ambulatory Limitations: no limitations - History of Present Illness Initial Comments: This is a 57-year-old female who presents to the emergency department for a fall. Patient reportedly fell last night and hit her head. States that her legs gave out on her, which does happen frequently, and she fell to the ground. She was unable to get up and spent the night on the ground. She called her friend this morning when she was unable to get up. She tried to get up on her own this morning, but fell again and hit her head on the counter this time. When her friend arrived to check on her, she called EMS. EMS noted a bottle of [place] that seem to be more empty than it should have been suggesting she took extra doses of her medication. They also found several empty packages of mar ijuana edibles. Patient is complaining of a headache and neck pain. Denies any other injuries. Also denies any known loss of consciousness and she is not taking any blood thinners. Patient appears very lethargic on exam and is slow to answer questions. MD Complaint: fall - Related Data Home Medications Medication Instructions Recorded Confirmed ALPRAZolam [Xanax] 2 mg PO BID PRN 07/16/23 07/16/23 Albuterol Sulfate [Albuterol 1 - 2 puff PO RT-QID PRN 07/16/23 07/16/23 Sulfate Hfa] Atorvastatin [Lipitor] 20 mg PO DAILY 07/16/23 07/16/23 Budesonide/Formoterol Fumarate 2 puff INHALATION RT-BID 07/16/23 07/16/23 [Symbicort 160-4.5 Mcg Inhaler] Cyclobenzaprine [Flexeril] 10 mg PO BID 07/16/23 07/16/23 Dulaglutide [Trulicity] 3 mg SQ WE 07/16/23 07/16/23 HYDROcodone/APAP 5-325MG [[place] 1 tab PO Q6HR PRN 07/16/23 07/16/23 5-325] Levothyroxine Sodium [Synthroid] 200 mcg PO DAILY 07/16/23 07/16/23 Linaclotide [Linzess] 145 mcg PO DAILY 07/16/23 07/16/23 Montelukast Sodium 10 mg PO DAILY 07/16/23 07/16/23 Omeprazole [PriLOSEC] 40 mg PO DAILY 07/16/23 07/16/23 Spironolactone [Aldactone] 50 mg PO DAILY 07/16/23 07/16/23 traZODone HCL [Trazodone HCl] 300 mg PO HS 07/16/23 07/16/23 Allergies Allergy/AdvReac Type Severity Reaction Status Date / Time acetaminophen AdvReac Nausea & Verified 07/16/23 11:38 Vomiting Review of Systems ROS Statement: Those systems with pertinent positive or pertinent negative responses have been documented in the HPI. ROS Other: All systems not noted in ROS Statement are negative. Past Medical History Past Medical History: COPD, Fibromyalgia, GERD/Reflux, Pneumonia, Thyroid Disorder Additional Past Medical History / Comment(s): sciatica, migraines, "low BP", heart murmer, diarrhea and vomiting, cyst on liver, bones spurs spine and feet, adrenal mass, poor vision-"needs glasses", cushings disease, History of Any Multi-Drug Resistant Organisms: None Reported Past Surgical History: Appendectomy, Cholecystectomy, Hysterectomy, Orthopedic Surgery, Tubal Ligation Past Anesthesia/Blood Transfusion Reactions: No Reported Reaction Past Psychological History: Anxiety, Depression, Panic Disorder, PTSD Smoking Status: Current every day smoker Past Alcohol Use History: Occasional Past Drug Use History: Marijuana - Past Family History Mother Additional Family Medical History / Comment(s): adopted General Exam Limitations: no limitations General appearance: alert, lethargic Head exam: Present: atraumatic, normocephalic, normal inspection Eye exam: Present: normal appearance, PERRL, EOMI. Absent: scleral icterus, conjunctival injection, periorbital swelling Respiratory exam: Present: normal lung sounds bilaterally. Absent: respiratory distress, wheezes, rales, rhonchi, stridor Cardiovascular Exam: Present: regular rate, normal rhythm, normal heart sounds. Absent: systolic murmur, diastolic murmur, rubs, gallop, clicks GI/Abdominal exam: Present: soft, normal bowel sounds. Absent: distended, tenderness, guarding, rebound, rigid Extremities exam: Present: normal inspection, full ROM. Absent: tenderness Neurological exam: Present: alert, oriented X3, CN II-XII intact Psychiatric exam: Present: normal affect, normal mood Skin exam: Present: warm, dry, intact, normal color. Absent: rash Course Vital Signs 07/16/23 07/16/23 07/16/23 08:46 08:57 09:15 Temperature 98.3 F Pulse Rate 74 56 L 76 Respiratory 18 12 16 Rate Blood Pressure 99/67 90/46 96/56 O2 Sat by Pulse 92 L 82 L 97 Oximetry 07/16/23 07/16/23 07/16/23 10:00 10:19 12:02 Temperature 98.0 F Pulse Rate 80 81 78 Respiratory 16 18 20 Rate Blood Pressure 99/72 95/52 100/68 O2 Sat by Pulse 98 98 97 Oximetry 07/16/23 13:25 Temperature 97.9 F Pulse Rate 82 Respiratory 20 Rate Blood Pressure 107/63 O2 Sat by Pulse 98 Oximetry Medical Decision Making - Medical Decision Making This is a 57 year old female who presents to the emergency department for a fall. Was pt. sent in by a medical professional or institution? @ -No Did you speak to anyone other than the patient for history? @ -EMS provided the majority of the history. Did you review nursing and triage notes? @ -Yes, and I agree, it is accurate with regards to the patient's symptoms. Were old charts reviewed? @ -No Differential Diagnosis? @ -Differential Diagnosis Head Injury: Contusion, hematoma, intracranial hemorrhage, skull fracture, whiplash, concussion, this is not meant to be an all-inclusive list. EKG interpreted by me (3pts min.)? @ -EKG interpreted by me demonstrating the following: Sinus rhythm. Ventricular rate 79 bpm, IA interval 169 ms, QRS duration 103 ms, QTc 421 ms. X-rays interpreted by me (1pt min.)? @ -Chest x-ray obtained. My interpretation identifies a possible posterior infiltrate. CT interpreted by me (1pt min.)? @ -Computed tomography scan of the brain and c-spine obtained. My interpretation identifies no evidence of an acute intracranial hemorrhage, skull fracture, or cervical spine fracture. U/S interpreted by me (1pt. min.)? @ -Not obtained What testing was considered but not performed? (CT, X-rays, U/S, labs)? Why? @ -None What meds were considered but not given? Why? @ -None Did you discuss the management of the patient with other professionals? @ -Yes, Dr. Brooks, who accepts the patient for admission. Did you reconcile home meds? @ -Yes Was smoking cessation discussed for >3mins.? @ -I discussed smoking cessation for greater than 3 minutes. The risk of smoking were discussed with the patient including but not limited to risks of cancer, stroke, coronary artery disease and COPD. Also discussed with patient were multiple methods of quitting smoking. Lastly we discussed the financial cost of smoking. Was critical care preformed (if so, how long)? @ -No Were there social determinants of health that impacted care today? How? (Homelessness, low income, unemployed, alcoholism, drug addiction, transportation, low edu. Level, literacy, decrease access to med. care, fdc, rehab)? @ -No Was there de-escalation of care discussed even if they declined? (Discuss DNR or withdrawal of care, Hospice)? @ -No What co-morbidities impacted this encounter? (DM, HTN, Smoking, COPD, CAD, Cancer, CVA, Hep., AIDS, mental health diagnosis, sleep apnea, morbid obesity)? @ -COPD, smoking Was patient admitted / discharged? @ -Admitted. On arrival, patient was very lethargic and slow to answer qu estions. Her oxygen ended up dropping to 82% on room air and she was started on a nasal cannula. Blood pressure was also soft, remaining in the 90s systolically. Lab work obtained revealing mild leukocytosis of 10.7. Lactic acid elevated at 2.6. Creatinine kinase only mildly elevated at 345. CT scan of the brain/C-spine obtained revealing no acute process. Chest x-ray reveals a posterior infiltrate on the the lateral projection. Patient continued to be very lethargic and somewhat hypotensive. She was also maintained on a nasal cannula. Given the hypoxia with hypotension and possible pneumonia, will admit patient to medicine for further management. She was started on the pneumonia protocol with ceftriaxone and azithromycin. Blood and sputum cultures obtained. She was also started at maintenance IV fluids. Undiagnosed new problem with uncertain prognosis? @ -None Drug Therapy requiring intensive monitoring for toxicity (Heparin, Nitro, Insulin, Cardizem)? @ -None Were any procedures done? @ -None Diagnosis/symptom? @ -Pneumonnia, hypoxia, fall Acute, or Chronic, or Acute on Chronic? @ -Acute Uncomplicated (without systemic symptoms) or Complicated (systemic symptoms)? @ -Complicated Side effects of treatment? @ -None Exacerbation, Progression, or Severe Exacerbation] @ -Not applicable Poses a threat to life or bodily function? @ -Yes This case was discussed in detail with the attending ED physician, Dr. Dubois. Presentation, findings, and treatment plan discussed in detail as well. - Lab Data Result diagrams: 07/16/23 09:34 07/16/23 09:34 Lab Results 07/16/23 07/16/23 07/16/23 Range/Units 09:34 09:34 09:34 WBC 10.7 H (3.8-10.6) k/uL RBC 4.23 (3.80-5.40) m/uL Hgb 13.2 (11.4-16.0) gm/dL Hct 40.5 (34.0-46.0) % MCV 95.9 (80.0-100.0) fL MCH 31.3 (25.0-35.0) pg MCHC 32.7 (31.0-37.0) g/dL RDW 13.1 (11.5-15.5) % Plt Count 167 (150-450) k/uL MPV 8.0 Neutrophils % 86 % Lymphocytes % 9 % Monocytes % 4 % Eosinophils % 0 % Basophils % 0 % Neutrophils # 9.2 H (1.3-7.7) k/uL Lymphocytes # 0.9 L (1.0-4.8) k/uL Monocytes # 0.4 (0-1.0) k/uL Eosinophils # 0.0 (0-0.7) k/uL Basophils # 0.0 (0-0.2) k/uL PT 11.1 (10.0-12.5) sec INR 1.0 (<1.2) APTT 26.1 (22.0-30.0) sec Sodium (137-145) mmol/L Potassium (3.5-5.1) mmol/L Chloride (98-107) mmol/L Carbon Dioxide (22-30) mmol/L Anion Gap mmol/L BUN (7-17) mg/dL Creatinine (0.52-1.04) mg/dL Est GFR (CKD-EPI)AfAm (>60 ml/min/1.73 sqM) Est GFR (CKD-EPI)NonAf (>60 ml/min/1.73 sqM) Glucose (74-99) mg/dL Lactic Ac Sepsis Rflx Plasma Lactic Acid Dmitry (0.7-2.0) mmol/L Calcium (8.4-10.2) mg/dL Magnesium (1.6-2.3) mg/dL Total Bilirubin (0.2-1.3) mg/dL AST (14-36) U/L ALT (4-34) U/L Alkaline Phosphatase (38-126) U/L Creatine Kinase (30-135) U/L Troponin I (0.000-0.034) ng/mL Total Protein (6.3-8.2) g/dL Albumin (3.5-5.0) g/dL Urine Color Colorless Urine Appearance Clear (Clear) Urine pH 6.5 (5.0-8.0) Ur Specific [place] 1.004 (1.001-1.035) Urine Protein Negative (Negative) Urine Glucose (UA) Negative (Negative) Urine Ketones Negative (Negative) Urine Blood Moderate H (Negative) Urine Nitrite Negative (Negative) Urine Bilirubin Negative (Negative) Urine Urobilinogen <2.0 (<2.0) mg/dL Ur Leukocyte Esterase Negative (Negative) Urine RBC 8 H (0-5) /hpf Urine WBC 1 (0-5) /hpf Ur Squamous Epith Cells 1 (0-4) /hpf Urine Bacteria Rare H (None) /hpf Urine Opiates Screen Detected H (NotDetected) Ur Oxycodone Screen Not Detected (NotDetected) Urine Methadone Screen Not Detected (NotDetected) Ur Barbiturates Screen Not Detected (NotDetected) U Tricyclic Antidepress Not Detected (NotDetected) Ur Phencyclidine Scrn Not Detected (NotDetected) Ur Amphetamines Screen Not Detected (NotDetected) U Methamphetamines Scrn Not Detected (NotDetected) U Benzodiazepines Scrn Detected H (NotDetected) Urine Cocaine Screen Not Detected (NotDetected) U Marijuana (THC) Screen Detected H (NotDetected) Serum Alcohol mg/dL 07/16/23 07/16/23 07/16/23 Range/Units 09:34 09:34 09:34 WBC (3.8-10.6) k/uL RBC (3.80-5.40) m/uL Hgb (11.4-16.0) gm/dL Hct (34.0-46.0) % MCV (80.0-100.0) fL MCH (25.0-35.0) pg MCHC (31.0-37.0) g/dL RDW (11.5-15.5) % Plt Count (150-450) k/uL MPV Neutrophils % % Lymphocytes % % Monocytes % % Eosinophils % % Basophils % % Neutrophils # (1.3-7.7) k/uL Lymphocytes # (1.0-4.8) k/uL Monocytes # (0-1.0) k/uL Eosinophils # (0-0.7) k/uL Basophils # (0-0.2) k/uL PT (10.0-12.5) sec INR (<1.2) APTT (22.0-30.0) sec Sodium 138 (137-145) mmol/L Potassium 3.4 L (3.5-5.1) mmol/L Chloride 105 (98-107) mmol/L Carbon Dioxide 25 (22-30) mmol/L Anion Gap 8 mmol/L BUN 14 (7-17) mg/dL Creatinine 0.89 (0.52-1.04) mg/dL Est GFR (CKD-EPI)AfAm 82 (>60 ml/min/1.73 sqM) Est GFR (CKD-EPI)NonAf 71 (>60 ml/min/1.73 sqM) Glucose 104 H (74-99) mg/dL Lactic Ac Sepsis Rflx Plasma Lactic Acid Dmitry 2.6 H* (0.7-2.0) mmol/L Calcium 9.1 (8.4-10.2) mg/dL Magnesium 1.7 (1.6-2.3) mg/dL Total Bilirubin 0.7 (0.2-1.3) mg/dL AST 23 (14-36) U/L ALT 14 (4-34) U/L Alkaline Phosphatase 76 (38-126) U/L Creatine Kinase 345 H (30-135) U/L Troponin I <0.012 (0.000-0.034) ng/mL Total Protein 5.9 L (6.3-8.2) g/dL Albumin 3.5 (3.5-5.0) g/dL Urine Color Urine Appearance (Clear) Urine pH (5.0-8.0) Ur Specific [place] (1.001-1.035) Urine Protein (Negative) Urine Glucose (UA) (Negative) Urine Ketones (Negative) Urine Blood (Negative) Urine Nitrite (Negative) Urine Bilirubin (Negative) Urine Urobilinogen (<2.0) mg/dL Ur Leukocyte Esterase (Negative) Urine RBC (0-5) /hpf Urine WBC (0-5) /hpf Ur Squamous Epith Cells (0-4) /hpf Urine Bacteria (None) /hpf Urine Opiates Screen (NotDetected) Ur Oxycodone Screen (NotDetected) Urine Methadone Screen (NotDetected) Ur Barbiturates Screen (NotDetected) U Tricyclic Antidepress (NotDetected) Ur Phencyclidine Scrn (NotDetected) Ur Amphetamines Screen (NotDetected) U Methamphetamines Scrn (NotDetected) U Benzodiazepines Scrn (NotDetected) Urine Cocaine Screen (NotDetected) U Marijuana (THC) Screen (NotDetected) Serum Alcohol <10 mg/dL 07/16/23 Range/Units 10:13 WBC (3.8-10.6) k/uL RBC (3.80-5.40) m/uL Hgb (11.4-16.0) gm/dL Hct (34.0-46.0) % MCV (80.0-100.0) fL MCH (25.0-35.0) pg MCHC (31.0-37.0) g/dL RDW (11.5-15.5) % Plt Count (150-450) k/uL MPV Neutrophils % % Lymphocytes % % Monocytes % % Eosinophils % % Basophils % % Neutrophils # (1.3-7.7) k/uL Lymphocytes # (1.0-4.8) k/uL Monocytes # (0-1.0) k/uL Eosinophils # (0-0.7) k/uL Basophils # (0-0.2) k/uL PT (10.0-12.5) sec INR (<1.2) APTT (22.0-30.0) sec Sodium (137-145) mmol/L Potassium (3.5-5.1) mmol/L Chloride (98-107) mmol/L Carbon Dioxide (22-30) mmol/L Anion Gap mmol/L BUN (7-17) mg/dL Creatinine (0.52-1.04) mg/dL Est GFR (CKD-EPI)AfAm (>60 ml/min/1.73 sqM) Est GFR (CKD-EPI)NonAf (>60 ml/min/1.73 sqM) Glucose (74-99) mg/dL Lactic Ac Sepsis Rflx Y Plasma Lactic Acid Dmitry (0.7-2.0) mmol/L Calcium (8.4-10.2) mg/dL Magnesium (1.6-2.3) mg/dL Total Bilirubin (0.2-1.3) mg/dL AST (14-36) U/L ALT (4-34) U/L Alkaline Phosphatase (38-126) U/L Creatine Kinase (30-135) U/L Troponin I (0.000-0.034) ng/mL Total Protein (6.3-8.2) g/dL Albumin (3.5-5.0) g/dL Urine Color Urine Appearance (Clear) Urine pH (5.0-8.0) Ur Specific [place] (1.001-1.035) Urine Protein (Negative) Urine Glucose (UA) (Negative) Urine Ketones (Negative) Urine Blood (Negative) Urine Nitrite (Negative) Urine Bilirubin (Negative) Urine Urobilinogen (<2.0) mg/dL Ur Leukocyte Esterase (Negative) Urine RBC (0-5) /hpf Urine WBC (0-5) /hpf Ur Squamous Epith Cells (0-4) /hpf Urine Bacteria (None) /hpf Urine Opiates Screen (NotDetected) Ur Oxycodone Screen (NotDetected) Urine Methadone Screen (NotDetected) Ur Barbiturates Screen (NotDetected) U Tricyclic Antidepress (NotDetected) Ur Phencyclidine Scrn (NotDetected) Ur Amphetamines Screen (NotDetected) U Methamphetamines Scrn (NotDetected) U Benzodiazepines Scrn (NotDetected) Urine Cocaine Screen (NotDetected) U Marijuana (THC) Screen (NotDetected) Serum Alcohol mg/dL - Radiology Data Radiology results: report reviewed, image reviewed Disposition Clinical Impression: Fall, Pneumonia, Hypoxia, Hypotension, Nicotine dependence Disposition: ADMITTED IP TO THIS [facility] Time of Disposition: 11:23
[2023-07-16] MEDS: SODIUM CHLORIDE 0.9% 1,000 ML IV STA (09:35)
[2023-07-16 09:44] LABS: Basophils % (A) 0 %; Eosinophils % (A) 0 %; HCT 40.5 % (34.0-46.0); HGB 13.2 gm/dL (11.4-16.0); Lymphocytes # (A) 0.9 k/uL (1.0-4.8); Lymphocytes % (A) 9 %; MCH 31.3 pg (25.0-35.0); MCHC 32.7 g/dL (31.0-37.0); MCV 95.9 fL (80.0-100.0); Monocytes # (A) 0.4 k/uL (0-1.0); Monocytes % (A) 4 %; Neutrophils # (A) 9.2 k/uL (1.3-7.7); Neutrophils % (A) 86 %; Platelet Count 167 k/uL (150-450); RBC 4.23 m/uL (3.80-5.40); RDW 13.1 % (11.5-15.5); WBC 10.7 k/uL (3.8-10.6)
[2023-07-16 09:53] LABS: Partial Thromboplastin Time 26.1 sec (22.0-30.0); Prothrombin Time 11.1 sec (10.0-12.5)
[2023-07-16 09:59] LABS: ALT 14 U/L (4-34); AST 23 U/L (14-36); African American GFR (CKD) 82 (>60 ml/min/1.73 sqM); Albumin 3.5 g/dL (3.5-5.0); Alcohol <10 mg/dL; Alkaline Phosphatase 76 U/L (38-126); Anion Gap 8 mmol/L; Blood Urea Nitrogen 14 mg/dL (7-17); Calcium 9.1 mg/dL (8.4-10.2); Carbon Dioxide 25 mmol/L (22-30); Chloride 105 mmol/L (98-107); Creatine Kinase 345 U/L (30-135); Glucose 104 mg/dL (74-99); Magnesium 1.7 mg/dL (1.6-2.3); Non-African American GFR(CKD) 71 (>60 ml/min/1.73 sqM); Potassium 3.4 mmol/L (3.5-5.1); Sodium 138 mmol/L (137-145); Total Bilirubin 0.7 mg/dL (0.2-1.3); Total Protein 5.9 g/dL (6.3-8.2)
--- NOTE | 2023-07-16 10:00 | CT ---
EXAMINATION TYPE: CT brain katherine wo con DATE OF EXAM: 07/16/2023 COMPARISON: 12/23/2022 HISTORY: fall CT DLP: 1351.1 mGycm, Automated exposure control for dose reduction was used. CONTRAST: Patient injected with 0 mL of Isovue 300. CT of the brain is performed utilizing 3 mm thick sections through the posterior fossa and 3 mm thick sections through the remaining calvarium. Study is performed within 24 hours of arrival to the hospital. No abnormal hyperdensity is present to suggest an acute intracranial hemorrhage. No mass lesion is evident. No acute infarcts are evident. Ventricles and sulci are appropriate for the patient age. Paranasal sinuses and mastoid air cells within the [id number] are clear. IMPRESSIONS: 1. No acute intracranial process. Follow-up MRI can be performed as indicated. CT cervical spine. COMPARISON: None CT of the cervical spine is performed in the axial plane at 2 mm thick sections. Reconstructed image s in the coronal, and sagittal plane are reviewed on the computer. No acute fractures are evident. Vertebral body alignment is normal. Disc space narrowing C5-6 C6-7 is present. Small anterior vertebral body spurs are present. Vertebral body heights are preserved. Small posterior endplate spurring is present C6-7 with mild anterior thecal sac compression. No AP sp inal canal stenosis is present. No neural foraminal stenosis is evident. IMPRESSION: 1. No acute osseous abnormality cervical spine
--- NOTE | 2023-07-16 10:22 | XR ---
EXAMINATION TYPE: XR chest 2V DATE OF EXAM: 07/16/2023 COMPARISON: 10/09/2016 INDICATION: Weakness, fall TECHNIQUE: Frontal and lateral views of the chest are obtained. FINDINGS: The heart size is normal. The pulmonary vasculature is normal. On the lateral projection and may be a posterior infiltrate. Clinical correlation recommended.. IMPRESSION: 1. There appears to be a posterior infiltrate on the lateral projection. Correlate for atelectasis or pneumonia.
[2023-07-16 11:04] LABS: Appearance,Urine Clear (Clear); Bacteria,Urine Rare /hpf; Bilirubin,Urine Negative (Negative); Blood,Urine Moderate (Negative); Color,Urine Colorless; Glucose,Urine (UA) Negative (Negative); Ketones,Urine Negative (Negative); Leukocyte Esterase,Urine Negative (Negative); Nitrite,Urine Negative (Negative); PH, Urine 6.5 (5.0-8.0); Protein,Urine Negative (Negative); RBC,Urine 8 /hpf (0-5); Specific Gravity,Urine 1.004 (1.001-1.035); Squamous Epithelial Cell,Urine 1 /hpf (0-4); Urobilinogen,Urine <2.0 mg/dL (<2.0); WBC,Urine 1 /hpf (0-5)
[2023-07-16 11:05] LABS: Cocaine Screen,Urine Not Detected (NotDetected); Opiate Screen,Urine Detected (NotDetected); Phencyclidine Screen,Urine Not Detected (NotDetected); Urn Cannabinoid Scrn Detected (NotDetected)
[2023-07-16 11:06] LABS: Amphetamine Screen,Urine Not Detected (NotDetected); Barbiturate Screen,Urine Not Detected (NotDetected); Benzodiazepines Screen,Urine Detected (NotDetected); Methadone Screen, Urine Not Detected (NotDetected); Oxycodone Screen, Urine Not Detected (NotDetected); Tricyclic Antidepressant,Urine Not Detected (NotDetected)
[2023-07-16] MEDS ORDERED: PNEUMONIA PROTOCOL UTILIZED 1 EACH MISC PO PRN (11:16)
[2023-07-16] MEDS ORDERED: ONDANSETRON 4 MG/2 ML VIAL IVP PRN (11:22)
[2023-07-16] MEDS ORDERED: NALOXONE 0.4 MG/ML 1 ML VIAL IV PRN (11:22)
[2023-07-16] MEDS ORDERED: IBUPROFEN 400 MG TAB PO PRN (11:22)
[2023-07-16] MEDS: SODIUM CHLORIDE 0.9% 1,000 ML IV SCH (12:03)
[2023-07-16] MEDS ORDERED: HYDROcodone/APAP 5-325MG 1 EACH TAB PO PRN (12:16)
[2023-07-16] MEDS ORDERED: ALBUTEROL NEBULIZED 2.5 MG/3 ML INHALATION PRN (12:16)
[2023-07-16] MEDS: POTASSIUM CHLORIDE ER 20 MEQ TAB.ER PO STA (12:31)
[2023-07-16] MEDS: AZITHROMYCIN 500 MG in SODIUM CHLORIDE 0.9% 250 ML IVPB STA (12:32)
[2023-07-16] MEDS: SYMBICORT 160-4.5 MCG INHALER INHALATION SCH (20:42)
[2023-07-16] MEDS: CYCLOBENZAPRINE 10 MG TAB PO SCH (22:28)
[2023-07-16] MEDS: traZODone HCL 100 MG TAB PO SCH (22:31)
[2023-07-17] MEDS: PANTOPRAZOLE 40 MG TABLET PO SCH (05:28)
[2023-07-17] MEDS: LEVOTHYROXINE 100 MCG TAB PO SCH (05:28)
[2023-07-17] MEDS: NON FORMULARY DRUG (Linaclotide [Linzess] 145 MCG Capsule) PO SCH (09:53)
[2023-07-17] MEDS: MONTELUKAST 10 MG TAB PO SCH (09:59)
[2023-07-17] MEDS: ATORVASTATIN 20 MG TAB PO SCH (09:59)
[2023-07-17] MEDS: AZITHROMYCIN 500 MG TAB PO SCH (10:00)
[2023-07-17] MEDS: SPIRONOLACTONE 25 MG TAB PO SCH (10:04)
[2023-07-17] MEDS: KETOROLAC 15 MG/ML 1 ML VIAL IVP PRN (10:04)
[2023-07-17] MEDS: SODIUM CHLORIDE 0.9% 1,000 ML IV ONE ×2 (17:10→18:35)
[2023-07-17 17:23] LABS: Basophils % (A) 0 %; Eosinophils # (A) 0.1 k/uL (0-0.7); Eosinophils % (A) 2 %; HCT 34.4 % (34.0-46.0); HGB 11.4 gm/dL (11.4-16.0); Lymphocytes # (A) 1.1 k/uL (1.0-4.8); Lymphocytes % (A) 16 %; MCH 32.2 pg (25.0-35.0); MCHC 33.1 g/dL (31.0-37.0); MCV 97.4 fL (80.0-100.0); Mean Platelet Volume 8.3; Monocytes # (A) 0.2 k/uL (0-1.0); Monocytes % (A) 4 %; Neutrophils # (A) 4.9 k/uL (1.3-7.7); Neutrophils % (A) 77 %; Platelet Count 164 k/uL (150-450); RBC 3.53 m/uL (3.80-5.40); RDW 13.2 % (11.5-15.5); WBC 6.4 k/uL (3.8-10.6)
[2023-07-17 17:40] LABS: ALT 12 U/L (4-34); AST 25 U/L (14-36); African American GFR (CKD) 87 (>60 ml/min/1.73 sqM); Albumin 2.6 g/dL (3.5-5.0); Albumin/Globulin Ratio 1.1; Alkaline Phosphatase 64 U/L (38-126); Anion Gap 5 mmol/L; Blood Urea Nitrogen 12 mg/dL (7-17); Calcium 8.5 mg/dL (8.4-10.2); Carbon Dioxide 25 mmol/L (22-30); Chloride 109 mmol/L (98-107); Globulin 2.3 g/dL; Glucose 122 mg/dL (74-99); Non-African American GFR(CKD) 76 (>60 ml/min/1.73 sqM); Potassium 3.3 mmol/L (3.5-5.1); Sodium 139 mmol/L (137-145); Total Bilirubin 0.2 mg/dL (0.2-1.3); Total Protein 4.9 g/dL (6.3-8.2)
--- NOTE | 2023-07-17 17:47 | XR ---
EXAMINATION TYPE: XR chest 1V portable DATE OF EXAM: 07/17/2023 5:20 PM CLINICAL INDICATION:Female, 57 years old with history of pneumonia; COMPARISON: Chest radiographs from 07/16/2023 TECHNIQUE: XR chest 1V portable Frontal view of the chest. FINDINGS: Lungs/Pleura: There is flattening of the diaphragm with increased lucency of the lungs. No evidence o f pneumothorax, pleural effusion or focal consolidation. Pulmonary vascularity: Unremarkable. Heart/mediastinum: Cardiomediastinal silhouette is unremarkable. Musculoskeletal: No acute osseous pathology. IMPRESSION: 1. No acute cardiopulmonary disease process. 2. COPD changes.
[2023-07-17] MEDS: POTASSIUM CHLORIDE ER 20 MEQ TAB.ER PO SCH (21:05)
[2023-07-17] MEDS: SODIUM CHLORIDE 0.9% 1,000 ML IV SCH (21:12)
--- NOTE | 2023-07-17 23:06 | HP ---
HISTORY AND PHYSICAL CHIEF COMPLAINT: Weakness, frequent falling, and pneumonitis. HISTORY OF PRESENT ILLNESS: This is a first known admission for this 57-year-old white female. She apparently fell and was on the floor for some time before somebody found her. She lives alone. She is not complaining of any injuries. She has been complaining of falling recently, was scheduled for an MRI of the LS spine, which is to be done today or tomorrow. She came to the emergency room. She also was apparently found to have pneumonitis. REVIEW OF SYSTEMS: She seems somewhat weak and groggy. She denies any headaches, focal neurologic signs or symptoms, change in vision, or the hearing, etc. Review of systems is otherwise unremarkable. Past medical history, family history, personal and social histories are significant. ALLERGIES: She is allergic to Tylenol. MEDICATIONS: She is on Medrol Dosepak, omeprazole, Symbicort, montelukast, Trulicity, levothyroxine, atorvastatin, Xanax, trazodone, spironolactone, topiramate. She has a history of heavy smoking and COPD. She also has issues with depression and migraines. SOCIAL HISTORY: She does continue to smoke heavily. She drinks beer occasionally. PHYSICAL EXAMINATION: VITAL SIGNS: Blood pressure 110/62 with a pulse of 91, respirations 15, and she is afebrile. GENERAL: She appeared to be somewhat lethargic. Skin color is normal. HEAD, EARS, EYES, NOSE, MOUTH AND THROAT: Normal. NECK: Supple. Carotids are normal. CHEST: Clear. CARDIAC: Normal. ABDOMEN: Soft and nontender. EXTREMITIES: Normal. NEUROLOGICAL: She seemed to be intact. IMPRESSION: 1. Frequent falling. 2. Low back pain. 3. Pneumonitis. 4. Chronic obstructive pulmonary disease. 5. Type 2 diabetes. 6. Possible alcohol abuse. PLAN: 1. Bedrest. 2. IV fluids. 3. Frequent monitoring of her neurologic status and vital signs. 4. Workup for lower extremity weakness. MMODL / IJN: [id number] /
[2023-07-18 08:24] LABS: ALT 11 U/L (4-34); AST 21 U/L (14-36); African American GFR (CKD) >90 (>60 ml/min/1.73 sqM); Albumin 2.4 g/dL (3.5-5.0); Alkaline Phosphatase 59 U/L (38-126); Anion Gap 4 mmol/L; Blood Urea Nitrogen 10 mg/dL (7-17); Calcium 8.1 mg/dL (8.4-10.2); Carbon Dioxide 21 mmol/L (22-30); Chloride 112 mmol/L (98-107); Globulin 2.3 g/dL; Glucose 83 mg/dL (74-99); Non-African American GFR(CKD) 81 (>60 ml/min/1.73 sqM); Potassium 3.3 mmol/L (3.5-5.1); Sodium 137 mmol/L (137-145); Total Bilirubin 0.3 mg/dL (0.2-1.3); Total Protein 4.7 g/dL (6.3-8.2)
[2023-07-18] MEDS: ALPRAZolam 0.5 MG TAB PO PRN (14:35)
--- NOTE | 2023-07-18 19:59 | PN ---
PROGRESS NOTE DATE OF SERVICE: 07/17/2023 CHIEF COMPLAINT: Pneumonitis, hypoxia, and weakness. HISTORY OF PRESENT ILLNESS: This lady is quite ill. She still feels very weak. Her blood pressures dropped, and she was given a bolus of 2000 mL of normal saline. Her potassium is also slightly low and has to be corrected. PHYSICAL EXAM: CHEST: Clear. CARDIAC EXAM: Normal. ABDOMEN: Soft and nontender. IMPRESSION: 1. Pneumonitis. 2. Syncope. 3. Hypotension. 4. Dehydration. 5. Hypokalemia. PLAN: 1. Increase IV fluids. 2. Correct hypokalemia. MMODL / IJN: [id number] /
[2023-07-19 07:54] VITALS: BP 115/71; PULSE 59; RESP 17; TEMP 97.9
[2023-07-19] MEDS: NON FORMULARY DRUG (Dulaglutide [Trulicity] 3 MG/0.5 ML Each) SQ SCH (12:04)
--- NOTE | 2023-07-19 20:56 | DS ---
DISCHARGE SUMMARY CHIEF COMPLAINT: Fall with weakness and general debility. HISTORY OF PRESENT ILLNESS AND PHYSICAL EXAMINATION: Details of this lady's history and physical can be found in the initial workup. LABORATORY STUDIES: While she was in the hospital, she had laboratory studies, details of which can be found in the laboratory section of her chart. COURSE IN THE HOSPITAL: After admission, she was placed on bedrest, started on intravenous fluids and rehydrated. She remained quite weak. She did have hypokalemia and this was corrected. She was doing well and seemed to be improving and then she suddenly signed herself out against medical advice on the . FINAL DIAGNOSES: 1. Fall. 2. Dehydration. 3. Hypokalemia. OPERATIONS: None. CONSULTATIONS: None. She signed out AMA. THANH / ELISSA: [id number] /
--- NOTE | 2023-07-19 23:14 | PN ---
PROGRESS NOTE DATE OF SERVICE: 07/18/2023 CHIEF COMPLAINT: Pneumonitis and weakness. HISTORY OF PRESENT ILLNESS: This lady is still feeling quite weak. She is not running a fever and she is slightly short of breath. Potassium is also low. PHYSICAL EXAMINATION: CHEST: Clear. CARDIAC: Normal. ABDOMEN: Soft, nontender. IMPRESSION: 1. Fall at home. 2. Generalized weakness and debility. 3. Hypokalemia. PLAN: 1. Try to increase her activity. 2. Continue with IV fluids. 3. Correct hypokalemia. MMODL / IJN: [id number] /
--- NOTE | 2023-07-21 12:49 | CDI ---
Date: 07/21/2023 From: Lillie Shukla Phone: [phone] Admit Date: 07/16/2023 11:16:00 AM Patient Name: April Lindsay Visit Number: [id number] Discharge Date: 07/19/2023 01:50:00 PM ATTENTION: The Clinical Documentation Specialists (CDI) and [facility] Coding Staff appreciate your assistance in clarifying documentation. Please respond to the clarification below the line at the bottom and electronically sign. The CDI & [facility] Coding staff will review the response and follow-up if needed. Please note: Queries are made part of the Legal Health Record. If you have any questions, please contact the author of this message via ITS. Dr. Roney Brooks: The patients principal diagnosis the diagnosis that was chiefly responsible for the admission - has not been clearly identified and clarification is requested. History/Risk factors: Recurrent falls, COPD, Smoker who presented after fall with hypoxia, hypotension Clinical Indicators: 07/15 Triage VS: 99/67, 98.3, 74, 18, 92% room air 07/15 ED note, HPI: "presents after fall. Patient reportedly fell last night and hit her head. States her legs gave out, unable to get up and spent the night on the ground, EMS noted a bottle of [place] that seem to be more empty than it should have been, They also found several empty packages of marijuana edibles. Appears very lethargic on exam." Clinical impression: "Fall, Pneumonia, Hypoxia, hypotension" 07/16 H&P, HPI: "fell and was on the floor for some time before someone found her. She is complaining of falling recently. She also was apparently found to have pneumonitis." Impression: "1. Frequent falling, 2. Low back pain, 3. Pneumonitis, 4. COPD, 5. Type 2 diabetes, 6. Possible alcohol abuse." 07/18 Discharge Summary, Final Diagnosis: "1. Fall, 2. Dehydration, 3. Hypokalemia" 07/15, 07/16 WBC: 10.7, 6.4 07/15 C-Reactive Protein: 22.6 Procalcitonin: 7.19 Lactic Acid: 2.6, 1.9 07/15, 07/16, 07/17 Potassium: 3.4, 3.3, 3.3 07/15 Chest X Ray, Impression: 1. There appears to be a posterior infiltrate on the lateral projection, Correlate for atelectasis or pneumonia." 07/16 Chest X Ray, Impression: 1. No acute cardiopulmonary disease process. 2. COPD changes." Treatment: Azithromycin 500mg oral daily x 2 doses start 07/17 Rocephin 2gram IV [id number] start 07/16 Normal Saline 125cc/hour 07/16-07/18 Potassium chloride 20meq TID 07/16-07/18 In your professional opinion, can you please clarify which diagnosis, after study, was the reason chiefly responsible for the admission? [ ] Pneumonia [ ] Hypokalemia [ ] Dehydration [ ] Other, please specify [ ] Unable to determine MTDD
--- NOTE | 2023-07-21 13:01 | CDI ---
Date: 07/20/2024 From: Lillie Shukla Phone: [phone] Admit Date: 07/16/2023 11:16:00 AM Patient Name: April Lindsay Visit Number: [id number] Discharge Date: 07/19/2023 01:50:00 PM ATTENTION: The Clinical Documentation Specialists (CDI) and [facility] Coding Staff appreciate your assistance in clarifying documentation. Please respond to the clarification below the line at the bottom and electronically sign. The CDI & [facility] Coding staff will review the response and follow-up if needed. Please note: Queries are made part of the Legal Health Record. If you have any questions, please contact the author of this message via ITS. Dr. Roney Brooks: There is documentation of a Creatinine Kinase level of 345 on 07/15. Additional clarification is requested. History/Risk Factors: Recurrent falls, COPD, Smoker who presented after fall with hypoxia, hypotension Clinical Indicators: 07/15 Triage VS: 99/67, 98.3, 74, 18, 92% room air 07/15 ED note, HPI: "presents after fall. Patient reportedly fell last night and hit her head. States her legs gave out, unable to get up and spent the night on the ground, EMS noted a bottle of [place] that seem to be more empty than it should have been, They also found several empty packages of marijuana edibles. Appears very lethargic on exam." Clinical impression: "Fall, Pneumonia, Hypoxia, hypotension" 07/16 H&P, HPI: "fell and was on the floor for some time before someone found her. She is complaining of falling recently. She also was apparently found to have pneumonitis." Impression: "1. Frequent falling, 2. Low back pain, 3. Pneumonitis, 4. COPD, 5. Type 2 diabetes, 6. Possible alcohol abuse." 07/18 Discharge Summary, Final Diagnosis: "1. Fall, 2. Dehydration, 3. Hypokalemia" 07/15, 07/16, 07/17 Potassium: 3.4, 3.3, 3.3 07/15 Lactic Acid: 2.6, 1.9 Treatment: Normal Saline 125cc/hour 07/16-07/18 Potassium chloride 20meq TID 07/16-07/18 Can you please clarify the clinical significance of the elevated Creatinine Kinase? [ ] Traumatic rhabdomyolysis due to prolonged immobility [ ] Elevated Creatinine Kinase of no clinical significance [ ] Other, please specify [ ] Unable to determine MTDD
--- NOTE | 2023-09-05 12:19 | MISC ---
MISCELLANOUS REPORT Unable to determine. Traumatic rhabdomyolysis. MMODL / IJN: [id number] /
== END 2023-07-19 13:50 | disposition left against medical advice (07) ==
LOC: EC 08:40 → 6NMEDSUR 11:15 → OBSVTOIN 11:16 → INTOOBSV 11:16 → 6NMEDSUR 13:34 → UNDODISIN 07-19 13:50
PROVIDERS: ADMIT Family Medicine; ATTEND Family Medicine
DX: J44.0 Chronic obstructive pulmonary disease with (acute) lower respiratory infection (principal); J18.9 Pneumonia, unspecified organism; E87.6 Hypokalemia; T79.6XXA Traumatic ischemia of muscle, initial encounter; E86.0 Dehydration; I95.9 Hypotension, unspecified; R09.02 Hypoxemia; R29.6 Repeated falls; G43.909 Migraine, unspecified, not intractable, without status migrainosus; E11.9 Type 2 diabetes mellitus without complications; M54.50 Low back pain, unspecified; M54.2 Cervicalgia; F17.200 Nicotine dependence, unspecified, uncomplicated; W19.XXXA Unspecified fall, initial encounter; Y92.009 Unspecified place in unspecified non-institutional (private) residence as the place of occurrence of the external cause; Z53.29 Procedure and treatment not carried out because of patient's decision for other reasons; Z79.51 Long term (current) use of inhaled steroids; Z79.85 Long-term (current) use of injectable non-insulin antidiabetic drugs; Z79.890 Hormone replacement therapy; Z79.899 Other long term (current) drug therapy; Z88.6 Allergy status to analgesic agent
CPT/HCPCS: 96376 ×2; 96361 ×3; 96366 ×4; 96375; 96365; 96367; 99285; 36415; 99406; 94640 ×6; 93005; 80053 ×3; 87449; 82550; 83605; 83735; 84484; 85025 ×2; 85610; 85730; 86140; 81001; 87040 ×2; 80306; 80320; 84145; 71045; 71046; 72125; 70450; G0378 ×4; J0456; J0696 ×4; J1885 ×2

== ENCOUNTER → 2023-08-12 | Outpatient (CLI) | payer MEDICARE ==
--- NOTE | 2023-08-14 12:56 | MR ---
EXAMINATION TYPE: MR lumbar spine wo/w con DATE OF EXAM: 08/12/2023 COMPARISON: Prior MRI lumbar spine January 23, 2023 HISTORY: Prior on synapse, unexplained falling for 2 months, multiple falls, LE radiculopathy, no sx no CA. Low back pain unspecified. TECHNIQUE: Multiplanar, multisequence images of the lumbar spine is performed without and with IV contrast, util izing 7.5 mL intravenous Gadavist FINDINGS: Sagittal images of the lumbar spine show vertebral body heights and alignment to remain sat isfactory. Some multilevel disc desiccation is redemonstrated but the disc space heights are maintain ed. The conus medullaris remains normal in position and signal ending mid L1 level. The bone marrow signal intensity remains within normal limits. No suspicious postcontrast enhancement is seen. Axial images show T12-L1 and L1-L2 levels to remain within normal limits. Axial images at L2-L3 level show new mild broad disc bulge minimally effaces the anterior thecal sac. Patent bilateral neural foramina are seen. Axial images at L3-L4 level redemonstrate mild to moderate facet arthropathy bilaterally mildly effac ing the bilateral posterior lateral thecal sac. No significant disc herniation. No significant change from prior. Axial images at L4-L5 level redemonstrated [id number] facet arthropathy and ligamentum flavum h ypertrophy effacing the posterior lateral thecal sac. There is mild broad-based disc bulge mildly eff acing the anterior thecal sac. Bilateral neural foramina are patent. Axial images at L5-S1 level redemonstrated mild to moderate facet arthropathy bilaterally. Spinal can al is preserved. Bilateral neural foramina are patent. IMPRESSION: [id number] multilevel degenerative changes of the lumbar spine as detailed above. N ew small disc herniation L2-L3 level otherwise no significant change from most recent prior MRI
== END | disposition home or self-care (01) ==
LOC: RADMRIMAIN 14:34
PROVIDERS: ATTEND Family Medicine
DX: M47.816 Spondylosis without myelopathy or radiculopathy, lumbar region (principal); M51.26 Other intervertebral disc displacement, lumbar region
CPT/HCPCS: 72158; A9585

== ENCOUNTER → 2024-06-17 | Day surgery (SDC) | payer MEDICARE, OTHER ==
[2024-06-17 08:03] VITALS: RESP 16
[2024-06-17 09:50] VITALS: BP 98/63; PULSE 61; TEMP 98.1
== END ==
LOC: RADMAMWWP 07:20
PROVIDERS: ATTEND Family Medicine
DX: N60.12 Diffuse cystic mastopathy of left breast (principal)
CPT/HCPCS: 88305; 19081; 19082; A4648; J2003

== ENCOUNTER 2024-07-29 19:35 | Emergency (ER) | payer MEDICARE, OTHER ==
--- NOTE | 2024-07-29 20:11 | ED ---
Weakness HPI - General Chief complaint: Weakness Stated complaint: Weakness Time Seen by Provider: 07/29/24 19:51 Source: patient, RN notes reviewed Mode of arrival: ambulatory Limitations: no limitations - History of Present Illness Initial comments: This is a 58-year-old female who presents to the emergency department for weakness and hypotension. Patient states that over the last 4 days she has felt very weak with no energy. Denies any chest pain or shortness of breath. Also denies any abdominal pain, nausea, or vomiting. She did have a sore throat for the last 3 days, but states that that has now resolved. Other than the fatigue and hypotension she does not have any complaints. States that her blood pressure is usually 100-110 systolically but has been very low down to the 70s to 80s systolically. MD Complaint: generalized weakness - Related Data Home Medications Medication Instructions Recorded Confirmed ALPRAZolam [Xanax] 2 mg PO BID PRN 07/16/23 06/24/24 Albuterol Sulfate [Albuterol 1 - 2 puff PO RT-QID PRN 07/16/23 06/24/24 Sulfate Hfa] Cyclobenzaprine [Flexeril] 10 mg PO BID 07/16/23 06/24/24 Dulaglutide [Trulicity] 3 mg SQ WE 07/16/23 06/24/24 Linaclotide [Linzess] 145 mcg PO DAILY 07/16/23 06/24/24 Omeprazole [PriLOSEC] 40 mg PO BID 07/16/23 06/24/24 RX: Montelukast Sodium 10 mg PO HS 07/16/23 06/24/24 Spironolactone [Aldactone] 50 mg PO DAILY 07/16/23 06/24/24 traZODone HCL [Trazodone HCl] 300 mg PO HS 07/16/23 06/24/24 Hydrocodone/Acetaminophen 7.5 mg PO TID 06/24/24 06/24/24 [Hydrocodone/Acetaminophen 7.5-325] Allergies Allergy/AdvReac Type Severity Reaction Status Date / Time acetaminophen AdvReac Nausea & Verified 07/29/24 19:39 Vomiting Review of Systems ROS Statement: Those systems with pertinent positive or pertinent negative responses have been documented in the HPI. ROS Other: All systems not noted in ROS Statement are negative. 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) poor vision-"needs glasses", cushings disease, History of Any Multi-Drug Resistant Organisms: None Reported Past Surgical History: Appendectomy, Cholecystectomy, Hysterectomy, Orthopedic Surgery, Tubal Ligation Additional Past Surgical History / Comment(s): Left shoulder roatator cuff surgery Past Anesthesia/Blood Transfusion Reactions: No Reported Reaction Past Psychological History: Anxiety, Depression, Panic Disorder, PTSD Smoking Status: Current every day smoker - Past Family History Mother History Unknown: Yes Additional Family Medical History / Comment(s): PT ADOPTED-FAMILY HX UNKNOWN General Exam Limitations: no limitations General appearance: alert, in no apparent distress Head exam: Present: atraumatic, normocephalic, normal inspection Eye exam: Present: normal appearance, PERRL, EOMI. Absent: scleral icterus, conjunctival injection, periorbital swelling ENT exam: Present: normal oropharynx, mucous membranes moist, TM's normal bilaterally, normal external ear exam Respiratory exam: Present: normal lung sounds bilaterally. Absent: respiratory distress, wheezes, rales, rhonchi, stridor Cardiovascular Exam: Present: regular rate, normal rhythm GI/Abdominal exam: Present: soft, normal bowel sounds. Absent: distended, tenderness, guarding, rebound, rigid Neurological exam: Present: alert, oriented X3, CN II-XII intact Psychiatric exam: Present: normal affect, normal mood Skin exam: Present: warm, dry, intact, normal color. Absent: rash Course Vital Signs 07/29/24 07/29/24 07/29/24 19:37 22:09 22:32 Temperature 97.6 F 97.3 F L Pulse Rate 73 71 Respiratory 18 19 Rate Blood Pressure 86/50 90/46 121/54 O2 Sat by Pulse 98 97 Oximetry Medical Decision Making - Medical Decision Making This is a 58 year old female who presents to the emergency department for weakness and hypotension. Was pt. sent in by a medical professional or institution? @ -No Did you speak to anyone other than the patient for history? @ -No Did you review nursing and triage notes? @ -Yes, and I agree, it is accurate with regards to the patient's symptoms. Were old charts reviewed? @ -No Differential Diagnosis? @ -Differential Weakness: Hypoglycemia, shock, sepsis, hyponatremia, anemia, infection, [place], ETOH, adverse medicine reaction, overdose, stroke, this is not meant to be an all-inclusive list. EKG interpreted by me (3pts min.)? @ -EKG interpreted by me demonstrating the following: Sinus rhythm. Ventricular rate 71 bpm, W[place] interval 190 ms, QRS duration 108 ms, QTc 449 ms. X-rays interpreted by me (1pt min.)? @ -Chest x-ray obtained, my interpretation identifies no localized consolidations or infiltrates. CT interpreted by me (1pt min.)? @ -Not obtained U/S interpreted by me (1pt. min.)? @ -Not obtained What testing was considered but not performed? (CT, X-rays, U/S, labs)? Why? @ -None What meds were considered but not given? Why? @ -None Did you discuss the management of the patient with other professionals? @ -No Did you reconcile home meds? @ -No Was smoking cessation discussed for >3mins.? @ -I discussed smoking cessation for greater than 3 minutes. The risk of smoking were discussed with the patient including but not limited to risks of cancer, stroke, coronary artery disease and COPD. Also discussed with patient were multiple methods of quitting smoking. Lastly we discussed the financial cost of smoking. Was critical care preformed (if so, how long)? @ -No Were there social determinants of health that impacted care today? How? (Homelessness, low income, unemployed, alcoholism, drug addiction, tra nsportation, low edu. Level, literacy, decrease access to med. care, [facility], rehab)? @ -No Was there de-escalation of care discussed even if they declined? (Discuss DNR or withdrawal of care, Hospice)? @ -No What co-morbidities impacted this encounter? (DM, HTN, Smoking, COPD, CAD, Cancer, CVA, Hep., AIDS, mental health diagnosis, sleep apnea, morbid obesity)? @ -COPD, smoking Was patient admitted / discharged? @ -Discharged. Lab work demonstrates mild hypoglycemia with glucose of 62 and is otherwise unremarkable. COVID, influenza, and RSV testing negative. Urinalysis negative for signs of infection. Chest x-ray reveals no acute process. She was hypotensive on arrival with a blood pressure of 86/50. She was given 2 L of IV fluids. 1/2 an ampule of dextrose administered for the hypoglycemia. Her blood pressure did start to slowly improve and got up to 121/54. Patient then advised that she was starting to get uncomfortable and really did not want to be in the hospital and requested discharge home at that point. She was not necessarily feeling much different, but advised that she wanted to leave and would just follow-up with her primary care provider. Given that her pressure improved, we were agreeable to discharge. The cause of her initial hypotension is not clear at this point. Strict return parameters discussed. Patient discharged home in stable condition. Case discussed with ED attending Dr. Menendez. Return precautions reviewed in depth, the patient is instructed to return to the emergency department with any new, worsening, or concerning symptoms. Patient verbalized understanding. Undiagnosed new problem with uncertain prognosis? @ -None Drug Therapy requiring intensive monitoring for toxicity (Heparin, Nitro, Insulin, Cardizem)? @ -None Were any procedures done? @ -None Diagnosis/symptom? @ -Weakness, hypotension Acute, or Chronic, or Acute on Chronic? @ -Acute Uncomplicated (without systemic symptoms) or Complicated (systemic symptoms)? @ -Uncomplicated Side effects of treatment? @ -None Exacerbation, Progression, or Severe Exacerbation] @ -Not applicable Poses a threat to life or bodily function? @ -This will depend on the cause - Lab Data Result diagrams: 07/29/24 20:39 07/29/24 20:39 Lab Results 07/29/24 07/29/24 07/29/24 Range/Units 20:39 20:39 20:39 WBC 5.48 (4.50-10.00) 10*3/uL RBC 3.86 L (4.10-5.20) 10*6/uL Hgb 11.8 L (12.0-15.0) g/dL Hct 34.1 L (37.2-46.3) % MCV 88.3 (80.0-97.0) fL MCH 30.6 (27.0-32.0) pg MCHC 34.6 (32.0-37.0) g/dL Plt Count 183 (140-440) 10*3/uL MPV 10.0 (9.5-12.2) fL Immature Gran % (Auto) 0.2 % Neutrophils % 46.1 % Lymphocytes % 41.8 % Monocytes % 7.7 % Eosinophils % 3.5 % Basophils % 0.7 % Immature Gran # 0.01 (0.00-0.04) 10*3/uL Neutrophils # 2.53 (1.80-7.70) 10*3/uL Lymphocytes # 2.29 (0.90-5.00) 10*3/uL Monocytes # 0.42 (0.20-1.00) 10*3/uL Eosinophils # 0.19 (0.04-0.35) 10*3/uL Basophils # 0.04 (0.00-0.10) 10*3/uL PT 9.5 L (10.0-12.5) sec INR 0.8 (<1.2) APTT 24.0 (22.0-30.0) sec Sodium (137-145) mmol/L Potassium (3.5-5.1) mmol/L Chloride (98-107) mmol/L Carbon Dioxide (22-30) mmol/L Anion Gap mmol/L BUN (7-17) mg/dL Creatinine (0.52-1.04) mg/dL Est GFR (CKD-EPI)AfAm (>60 ml/min/1.73 sqM) Est GFR (CKD-EPI)NonAf (>60 ml/min/1.73 sqM) Glucose (74-99) mg/dL Plasma Lactic Acid Dmitry (0.7-2.0) mmol/L Calcium (8.4-10.2) mg/dL Magnesium (1.6-2.3) mg/dL Total Bilirubin (0.2-1.3) mg/dL AST (14-36) U/L ALT (4-34) U/L Alkaline Phosphatase (38-126) U/L Troponin I (0.000-0.034) ng/mL Total Protein (6.3-8.2) g/dL Albumin (3.5-5.0) g/dL TSH (0.465-4.680) mIU/L Urine Color Colorless Urine Appearance Clear (Clear) Urine pH 5.5 (5.0-8.0) Ur Specific Ross 1.006 (1.001-1.035) Urine Protein Negative (Negative) Urine Glucose (UA) Negative (Negative) Urine Ketones Negative (Negative) Urine Blood Negative (Negative) Urine Nitrite Negative (Negative) Urine Bilirubin Negative (Negative) Urine Urobilinogen <2.0 (<2.0) mg/dL Ur Leukocyte Esterase Negative (Negative) Influenza Type A (PCR) (Not Detectd) Influenza Type B (PCR) (Not Detectd) RSV (PCR) (Not Detectd) SARS-CoV-2 (PCR) (Not Detectd) 07/29/24 07/29/24 07/29/24 Range/Units 20:39 20:39 20:39 WBC (4.50-10.00) 10*3/uL RBC (4.10-5.20) 10*6/uL Hgb (12.0-15.0) g/dL Hct (37.2-46.3) % MCV (80.0-97.0) fL MCH (27.0-32.0) pg MCHC (32.0-37.0) g/dL Plt Count (140-440) 10*3/uL MPV (9.5-12.2) fL Immature Gran % (Auto) % Neutrophils % % Lymphocytes % % Monocytes % % Eosinophils % % Basophils % % Immature Gran # (0.00-0.04) 10*3/uL Neutrophils # (1.80-7.70) 10*3/uL Lymphocytes # (0.90-5.00) 10*3/uL Monocytes # (0.20-1.00) 10*3/uL Eosinophils # (0.04-0.35) 10*3/uL Basophils # (0.00-0.10) 10*3/uL PT (10.0-12.5) sec INR (<1.2) APTT (22.0-30.0) sec Sodium 134 L (137-145) mmol/L Potassium 4.3 (3.5-5.1) mmol/L Chloride 100 (98-107) mmol/L Carbon Dioxide 29 (22-30) mmol/L Anion Gap 5 mmol/L BUN 13 (7-17) mg/dL Creatinine 0.77 (0.52-1.04) mg/dL Est GFR (CKD-EPI)AfAm >90 (>60 ml/min/1.73 sqM) Est GFR (CKD-EPI)NonAf 84 (>60 ml/min/1.73 sqM) Glucose 62 L (74-99) mg/dL Plasma Lactic Acid Dimtry 1.1 (0.7-2.0) mmol/L Calcium 9.6 (8.4-10.2) mg/dL Magnesium 1.8 (1.6-2.3) mg/dL Total Bilirubin 0.2 (0.2-1.3) mg/dL AST 19 (14-36) U/L ALT 10 (4-34) U/L Alkaline Phosphatase 64 (38-126) U/L Troponin I (0.000-0.034) ng/mL Total Protein 6.1 L (6.3-8.2) g/dL Albumin 3.7 (3.5-5.0) g/dL TSH 3.360 (0.465-4.680) mIU/L Urine Color Urine Appearance (Clear) Urine pH (5.0-8.0) Ur Specific Ross (1.001-1.035) Urine Protein (Negative) Urine Glucose (UA) (Negative) Urine Ketones (Negative) Urine Blood (Negative) Urine Nitrite (Negative) Urine Bilirubin (Negative) Urine Urobilinogen (<2.0) mg/dL Ur Leukocyte Esterase (Negative) Influenza Type A (PCR) Not Detected (Not Detectd) Influenza Type B (PCR) Not Detected (Not Detectd) RSV (PCR) Not Detected (Not Detectd) SARS-CoV-2 (PCR) Not Detected (Not Detectd) 07/29/24 Range/Units 22:06 WBC (4.50-10.00) 10*3/uL RBC (4.10-5.20) 10*6/uL Hgb (12.0-15.0) g/dL Hct (37.2-46.3) % MCV (80.0-97.0) fL MCH (27.0-32.0) pg MCHC (32.0-37.0) g/dL Plt Count (140-440) 10*3/uL MPV (9.5-12.2) fL Immature Gran % (Auto) % Neutrophils % % Lymphocytes % % Monocytes % % Eosinophils % % Basophils % % Immature Gran # (0.00-0.04) 10*3/uL Neutrophils # (1.80-7.70) 10*3/uL Lymphocytes # (0.90-5.00) 10*3/uL Monocytes # (0.20-1.00) 10*3/uL Eosinophils # (0.04-0.35) 10*3/uL Basophils # (0.00-0.10) 10*3/uL PT (10.0-12.5) sec INR (<1.2) APTT (22.0-30.0) sec Sodium (137-145) mmol/L Potassium (3.5-5.1) mmol/L Chloride (98-107) mmol/L Carbon Dioxide (22-30) mmol/L Anion Gap mmol/L BUN (7-17) mg/dL Creatinine (0.52-1.04) mg/dL Est GFR (CKD-EPI)AfAm (>60 ml/min/1.73 sqM) Est GFR (CKD-EPI)NonAf (>60 ml/min/1.73 sqM) Glucose (74-99) mg/dL Plasma Lactic Acid Dmitry (0.7-2.0) mmol/L Calcium (8.4-10.2) mg/dL Magnesium (1.6-2.3) mg/dL Total Bilirubin (0.2-1.3) mg/dL AST (14-36) U/L ALT (4-34) U/L Alkaline Phosphatase (38-126) U/L Troponin I <0.012 (0.000-0.034) ng/mL Total Protein (6.3-8.2) g/dL Albumin (3.5-5.0) g/dL TSH (0.465-4.680) mIU/L Urine Color Urine Appearance (Clear) Urine pH (5.0-8.0) Ur Specific Ross (1.001-1.035) Urine Protein (Negative) Urine Glucose (UA) (Negative) Urine Ketones (Negative) Urine Blood (Negative) Urine Nitrite (Negative) Urine Bilirubin (Negative) Urine Urobilinogen (<2.0) mg/dL Ur Leukocyte Esterase (Negative) Influenza Type A (PCR) (Not Detectd) Influenza Type B (PCR) (Not Detectd) RSV (PCR) (Not Detectd) SARS-CoV-2 (PCR) (Not Detectd) - Radiology Data Radiology results: report reviewed, image reviewed Disposition Clinical Impression: Weakness, Hypotension, Nicotine dependence Disposition: HOME SELF-CARE Instructions (If sedation given, give patient instructions): Hypotension (ED), Weakness (ED) Additional Instructions: Return to the emergency department with any new, worsening, or concerning symptoms. Follow up with your primary care provider in 1-2 days. Is patient prescribed a controlled substance at d/c from ED?: No Referrals: Roney Brooks MD [Primary Care Provider] - 1-2 days Time of Disposition: 22:33
[2024-07-29] MEDS: LACTATED RINGERS 1,000 ML IV ONE ×2 (20:41→22:01)
--- NOTE | 2024-07-29 20:42 | XR ---
EXAMINATION TYPE: XR chest 2V DATE OF EXAM: 07/29/2024 8:31 PM COMPARISON: Chest radiographs from 07/17/2023 CLINICAL INDICATION: Female, 58 years old with history of Weakness; [facility] TECHNIQUE: XR chest 2V Frontal and lateral views of the chest. FINDINGS: Lungs/Pleura: There is no evidence of pleural effusion, focal consolidation, or pneumothorax. Pulmonary vascularity: Unremarkable. Heart/mediastinum: Cardiomediastinal silhouette is unremarkable. Musculoskeletal: No acute osseous pathology. IMPRESSION: No acute cardiopulmonary disease/process. [facility], , 07/29/2024 8:40 PM
[2024-07-29 20:55] LABS: Basophils # (A) 0.04 10*3/uL (0.00-0.10); Basophils % (A) 0.7 %; Eosinophils # (A) 0.19 10*3/uL (0.04-0.35); Eosinophils % (A) 3.5 %; HCT 34.1 % (37.2-46.3); HGB 11.8 g/dL (12.0-15.0); Lymphocytes # (A) 2.29 10*3/uL (0.90-5.00); Lymphocytes % (A) 41.8 %; MCH 30.6 pg (27.0-32.0); MCHC 34.6 g/dL (32.0-37.0); MCV 88.3 fL (80.0-97.0); Monocytes # (A) 0.42 10*3/uL (0.20-1.00); Monocytes % (A) 7.7 %; Neutrophils # (A) 2.53 10*3/uL (1.80-7.70); Neutrophils % (A) 46.1 %; Platelet Count 183 10*3/uL (140-440); RBC 3.86 10*6/uL (4.10-5.20); RDW 13.2 % (11.5-14.5); WBC 5.48 10*3/uL (4.50-10.00)
[2024-07-29 21:08] LABS: INR 0.8 (<1.2); Prothrombin Time 9.5 sec (10.0-12.5)
[2024-07-29 21:11] LABS: ALT 10 U/L (4-34); AST 19 U/L (14-36); African American GFR (CKD) >90 (>60 ml/min/1.73 sqM); Albumin 3.7 g/dL (3.5-5.0); Alkaline Phosphatase 64 U/L (38-126); Anion Gap 5 mmol/L; Blood Urea Nitrogen 13 mg/dL (7-17); Calcium 9.6 mg/dL (8.4-10.2); Carbon Dioxide 29 mmol/L (22-30); Chloride 100 mmol/L (98-107); Glucose 62 mg/dL (74-99); Magnesium 1.8 mg/dL (1.6-2.3); Non-African American GFR(CKD) 84 (>60 ml/min/1.73 sqM); Potassium 4.3 mmol/L (3.5-5.1); Sodium 134 mmol/L (137-145); Total Bilirubin 0.2 mg/dL (0.2-1.3); Total Protein 6.1 g/dL (6.3-8.2)
[2024-07-29 21:12] LABS: Appearance,Urine Clear (Clear); Bilirubin,Urine Negative (Negative); Blood,Urine Negative (Negative); Color,Urine Colorless; Glucose,Urine (UA) Negative (Negative); Ketones,Urine Negative (Negative); Leukocyte Esterase,Urine Negative (Negative); Nitrite,Urine Negative (Negative); PH, Urine 5.5 (5.0-8.0); Protein,Urine Negative (Negative); Specific Gravity,Urine 1.006 (1.001-1.035); Urobilinogen,Urine <2.0 mg/dL (<2.0)
[2024-07-29] MEDS ORDERED: LACTATED RINGERS 1,000 ML IV SCH (21:15)
[2024-07-29 21:32] LABS: Influenza A Not Detected (Not Detectd); Influenza B Not Detected (Not Detectd); RSV Not Detected (Not Detectd)
[2024-07-29] MEDS: DEXTROSE 50% SYRINGE 50 ML IVP STA (22:04)
[2024-07-29 22:13] VITALS: PULSE 71; RESP 19; TEMP 97.3
[2024-07-29 22:33] VITALS: BP 121/54
== END 2024-07-29 22:42 | disposition home or self-care (01) ==
LOC: EC 19:35
DX: I95.9 Hypotension, unspecified (principal); R53.1 Weakness; J44.9 Chronic obstructive pulmonary disease, unspecified; F17.200 Nicotine dependence, unspecified, uncomplicated; Z88.6 Allergy status to analgesic agent
CPT/HCPCS: 36415; 71046; 80053; 81003; 83605; 83735; 84443; 84484; 85025; 85610; 85730; 87636; 93005; 96361; 96374; 99285; 99406

== ENCOUNTER → 2024-08-05 | Outpatient (CLI) | payer MEDICARE, OTHER ==
[2024-08-05 15:46] LABS: Basophils # (A) 0.04 X 10*3/uL (0.00-0.10); Basophils % (A) 0.5 %; Eosinophils # (A) 0.19 X 10*3/uL (0.04-0.35); Eosinophils % (A) 2.6 %; HCT 34.4 % (37.2-46.3); HGB 11.4 g/dL (12.0-15.0); Lymphocytes # (A) 1.24 X 10*3/uL (0.90-5.00); Lymphocytes % (A) 16.9 %; MCH 29.8 pg (27.0-32.0); MCHC 33.1 g/dL (32.0-37.0); MCV 89.8 FL (80.0-97.0); Mean Platelet Volume 10.2 FL (9.5-12.2); Monocytes # (A) 0.44 X 10*3/uL (0.20-1.00); NRBC Per 100 WBC 0 X 10*3/uL (0.00-0.01); Neutrophils # (A) 5.41 X 10*3/uL (1.80-7.70); Neutrophils % (A) 73.7 %; Platelet Count 174 X 10*3/uL (140-440); RBC 3.83 X 10*6/uL (4.10-5.20); RDW 13.2 % (11.5-14.5); WBC 7.34 X 10*3/uL (4.50-10.00)
[2024-08-05 16:18] LABS: ALT 15 U/L (8-44); AST 17 U/L (13-35); Alkaline Phosphatase 71 U/L (41-126); BUN/Creat Ratio 11.71 Ratio (12.00-20.00); Blood Urea Nitrogen 8.2 mg/dL (9.0-27.0); Calcium 9.3 mg/dL (8.7-10.3); Carbon Dioxide 25.4 mmol/L (21.6-31.8); Chloride 95 mmol/L (96-109); Globulin 2.1 g/dL (1.6-3.3); Glucose 80 mg/dL (70-110); Potassium 4.6 mmol/L (3.5-5.5); Sodium 130 mmol/L (135-145); Total Bilirubin 0.2 mg/dL (0.3-1.2); Total Protein 6.1 g/dL (6.2-8.2)
== END | disposition home or self-care (01) ==
LOC: LABWHC1 10:57
PROVIDERS: ATTEND Family Medicine
DX: I95.9 Hypotension, unspecified (principal); E24.0 Pituitary-dependent Cushing's disease; R06.02 Shortness of breath
CPT/HCPCS: 36415; 80053; 82024; 82533; 85025

== ENCOUNTER 2024-08-12 06:11 | Emergency (ER) | payer MEDICARE, OTHER ==
[2024-08-12 06:18] VITALS: RESP 18
--- NOTE | 2024-08-12 06:40 | ED ---
Abdominal Pain HPI - General Source: EMS Mode of arrival: EMS Limitations: no limitations - History of Present Illness MD Complaint: abdominal pain -: days(s) Location: LLQ, RLQ Radiation: none Migration to: no migration Severity: severe Quality: cramping, fullness Consistency: colicky Improves With: nothing Worsens With: nothing Associated Symptoms: constipation <Adrian Penaloza - Last Filed: 08/12/24 06:40> <Isaiah Menendez - Last Filed: 08/12/24 10:05> - General Chief Complaint: Abdominal Pain Stated Complaint: Abd pain Time Seen by Provider: 08/12/24 06:13 - History of Present Illness Initial Comments: This patient is a 58-year-old woman who presents with complaint that she believes she has a bowel obstruction. The patient states she has been having a hard time passing any stool going back 5 to 6 days and she is also having lower abdominal pain. Patient states she has longstanding history of intermittent con stipation. She states that she does take lactulose and Linzess for her abdominal symptoms. Today she was not able to pass much stool. She states it feels like there is something hard at the anus and causing pain at the anus. (Adrian Penaloza) - Related Data Home Medications Medication Instructions Recorded Confirmed ALPRAZolam [Xanax] 2 mg PO BID PRN 07/16/23 06/24/24 Albuterol Sulfate [Albuterol 1 - 2 puff PO RT-QID PRN 07/16/23 06/24/24 Sulfate Hfa] Cyclobenzaprine [Flexeril] 10 mg PO BID 07/16/23 06/24/24 Dulaglutide [Trulicity] 3 mg SQ WE 07/16/23 06/24/24 Linaclotide [Linzess] 145 mcg PO DAILY 07/16/23 06/24/24 Montelukast Sodium 10 mg PO HS 07/16/23 06/24/24 Omeprazole [PriLOSEC] 40 mg PO BID 07/16/23 06/24/24 Spironolactone [Aldactone] 50 mg PO DAILY 07/16/23 06/24/24 traZODone HCL [Trazodone HCl] 300 mg PO HS 07/16/23 06/24/24 Hydrocodone/Acetaminophen 7.5 mg PO TID 06/24/24 06/24/24 [Hydrocodone/Acetaminophen 7.5-325] Allergies Allergy/AdvReac Type Severity Reaction Status Date / Time acetaminophen AdvReac Nausea & Verified 08/12/24 06:18 Vomiting Review of Systems ROS Other: All systems not noted in ROS Statement are negative. Constitutional: Denies: fever, chills Respiratory: Denies: cough, dyspnea Cardiovascular: Denies: chest pain, palpitations Gastrointestinal: Reports: abdominal pain, constipation. Denies: nausea, vomiting, diarrhea, melena, hematochezia Genitourinary: Denies: dysuria, hematuria Musculoskeletal: Denies: back pain Skin: Denies: rash Neurological: Denies: headache, weakness <Adrian Penaloza - Last Filed: 08/12/24 06:40> ROS Other: All systems not noted in ROS Statement are negative. <Isaiah Menendez - Last Filed: 08/12/24 10:05> ROS Statement: Those systems with pertinent positive or pertinent negative responses have been documented in the HPI. 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) poor vision-"needs glasses", cushings disease, History of Any Multi-Drug Resistant Organisms: None Reported Past Surgical History: Appendectomy, Cholecystectomy, Hysterectomy, Orthopedic Surgery, Tubal Ligation Additional Past Surgical History / Comment(s): Left shoulder roatator cuff surgery Past Anesthesia/Blood Transfusion Reactions: No Reported Reaction Past Psychological History: Anxiety, Depression, Panic Disorder, PTSD Smoking Status: Current every day smoker Past Alcohol Use History: Rare Past Drug Use History: Marijuana - Past Family History Mother History Unknown: Yes Additional Family Medical History / Comment(s): PT ADOPTED-FAMILY HX UNKNOWN <Adrian Penaloaz - Last Filed: 08/12/24 06:40> General Exam General appearance: alert, in no apparent distress Head exam: Present: atraumatic, normocephalic Eye exam: Present: normal appearance. Absent: scleral icterus, conjunctival injection ENT exam: Present: normal exam Neck exam: Present: normal inspection Respiratory exam: Present: normal lung sounds bilaterally. Absent: respiratory distress, wheezes, rales, rhonchi, stridor, accessory muscle use Cardiovascular Exam: Present: regular rate, normal rhythm, normal heart sounds. Absent: systolic murmur, diastolic murmur, rubs, gallop GI/Abdominal exam: Present: soft. Absent: distended, tenderness, guarding, rebound, rigid, mass, pulsatile mass, hernia Rectal exam: Present: normal inspection, normal rectal tone, fecal impaction. Absent: hemorrhoids, mass, tenderness Extremities exam: Present: normal inspection, normal capillary refill. Absent: pedal edema, calf tenderness Back exam: Present: normal inspection. Absent: CVA tenderness (R), CVA tenderne ss (L) Neurological exam: Present: alert Skin exam: Present: warm, dry, intact, normal color. Absent: rash <Adrian Penaloza - Last Filed: 08/12/24 06:40> Course Vital Signs 08/12/24 06:12 Temperature 97.8 F Pulse Rate 71 Respiratory 18 Rate Blood Pressure 137/72 O2 Sat by Pulse 100 Oximetry Medical Decision Making - Lab Data Result diagrams: 08/12/24 06:42 08/12/24 06:42 <Isaiah Menendez - Last Filed: 08/12/24 10:05> - Medical Decision Making Patient care signed out to me by previous shift physician, Dr. Rueda. Briefly, patient here for abdominal pain and symptoms of constipation. She did have manual disimpaction along with enema with reported expulsion of large amounts of stool. Plan at signout was to reevaluate patient determine need for further care. Patient reevaluated at 10:00 AM feeling much better after having had large bowel movement. States that she is agreeable to discharge. Told to follow-up with primary care doctor. (Isaiah Menendez) - Lab Data Lab Results 08/12/24 08/12/24 Range/Units 06:42 06:42 WBC 10.29 H (4.50-10.00) 10*3/uL RBC 4.16 (4.10-5.20) 10*6/uL Hgb 12.7 (12.0-15.0) g/dL Hct 35.5 L (37.2-46.3) % MCV 85.3 (80.0-97.0) fL MCH 30.5 (27.0-32.0) pg MCHC 35.8 (32.0-37.0) g/dL Plt Count 235 (140-440) 10*3/uL MPV 9.3 L (9.5-12.2) fL Immature Gran % (Auto) 0.4 % Neutrophils % 84.0 % Lymphocytes % 10.2 % Monocytes % 4.5 % Eosinophils % 0.5 % Basophils % 0.4 % Immature Gran # 0.04 (0.00-0.04) 10*3/uL Neutrophils # 8.65 H (1.80-7.70) 10*3/uL Lymphocytes # 1.05 (0.90-5.00) 10*3/uL Monocytes # 0.46 (0.20-1.00) 10*3/uL Eosinophils # 0.05 (0.04-0.35) 10*3/uL Basophils # 0.04 (0.00-0.10) 10*3/uL Sodium 128 L (137-145) mmol/L Potassium 4.4 (3.5-5.1) mmol/L Chloride 95 L (98-107) mmol/L Carbon Dioxide 26 (22-30) mmol/L Anion Gap 7 mmol/L BUN 9 (7-17) mg/dL Creatinine 0.62 (0.52-1.04) mg/dL Est GFR (CKD-EPI)AfAm >90 (>60 ml/min/1.73 sqM) Est GFR (CKD-EPI)NonAf >90 (>60 ml/min/1.73 sqM) Glucose 118 H (74-99) mg/dL Calcium 10.1 (8.4-10.2) mg/dL Total Bilirubin 0.8 (0.2-1.3) mg/dL AST 20 (14-36) U/L ALT 14 (4-34) U/L Alkaline Phosphatase 70 (38-126) U/L Total Protein 6.8 (6.3-8.2) g/dL Albumin 4.3 (3.5-5.0) g/dL Disposition <Adrian Penaloza - Last Filed: 08/12/24 06:40> Is patient prescribed a controlled substance at d/c from ED?: No Time of Disposition: 10:05 <Isaiah Menendez - Last Filed: 08/12/24 10:05> Clinical Impression: Constipation Disposition: HOME SELF-CARE Condition: Good Instructions (If sedation given, give patient instructions): Constipation (ED) Referrals: Roney Brooks MD [Primary Care Provider] - 1-2 days
[2024-08-12 07:24] LABS: Basophils # (A) 0.04 10*3/uL (0.00-0.10); Basophils % (A) 0.4 %; Eosinophils # (A) 0.05 10*3/uL (0.04-0.35); Eosinophils % (A) 0.5 %; HCT 35.5 % (37.2-46.3); HGB 12.7 g/dL (12.0-15.0); Lymphocytes # (A) 1.05 10*3/uL (0.90-5.00); Lymphocytes % (A) 10.2 %; MCH 30.5 pg (27.0-32.0); MCHC 35.8 g/dL (32.0-37.0); MCV 85.3 fL (80.0-97.0); Mean Platelet Volume 9.3 fL (9.5-12.2); Monocytes # (A) 0.46 10*3/uL (0.20-1.00); Monocytes % (A) 4.5 %; Neutrophils # (A) 8.65 10*3/uL (1.80-7.70); Platelet Count 235 10*3/uL (140-440); RBC 4.16 10*6/uL (4.10-5.20); RDW 12.6 % (11.5-14.5); WBC 10.29 10*3/uL (4.50-10.00)
[2024-08-12 07:25] LABS: Anion Gap 7 mmol/L; Blood Urea Nitrogen 9 mg/dL (7-17); Carbon Dioxide 26 mmol/L (22-30); Chloride 95 mmol/L (98-107); Glucose 118 mg/dL (74-99); Potassium 4.4 mmol/L (3.5-5.1); Sodium 128 mmol/L (137-145)
[2024-08-12 07:26] LABS: ALT 14 U/L (4-34); AST 20 U/L (14-36); African American GFR (CKD) >90 (>60 ml/min/1.73 sqM); Albumin 4.3 g/dL (3.5-5.0); Alkaline Phosphatase 70 U/L (38-126); Calcium 10.1 mg/dL (8.4-10.2); Non-African American GFR(CKD) >90 (>60 ml/min/1.73 sqM); Total Bilirubin 0.8 mg/dL (0.2-1.3); Total Protein 6.8 g/dL (6.3-8.2)
[2024-08-12 10:26] VITALS: BP 99/66; PULSE 70; TEMP 98.2
== END 2024-08-12 10:40 | disposition home or self-care (01) ==
LOC: EC 06:11
DX: K59.00 Constipation, unspecified (principal); F17.200 Nicotine dependence, unspecified, uncomplicated; Z88.8 Allergy status to other drugs, medicaments and biological substances
CPT/HCPCS: 36415; 80053; 85025; 99284

== ENCOUNTER 2024-10-31 08:02 | Day surgery (SDC) | payer MEDICARE, OTHER ==
[2024-10-31] MEDS: LACTATED RINGERS 1,000 ML IV SCH (08:31)
[2024-10-31] MEDS: IV FLUID CONTINUATION 1,000 ML IV ONE ×2 (08:31→09:19)
[2024-10-31 08:33] VITALS: TEMP 98.3
[2024-10-31] MEDS ORDERED: LIDOCAINE 1% INJ 10MG/ML (20 ML MDV) ONE (09:20)
[2024-10-31] MEDS ORDERED: GLYCOPYRROLATE 0.2 MG/ML 2 ML VIAL ONE (09:20)
[2024-10-31] MEDS ORDERED: PROPOFOL 10 MG/ML 20 ML VIAL IV ONE (09:20)
[2024-10-31] MEDS ORDERED: ATROPINE SULFATE 0.4 MG/ML 1 ML VIAL ONE (09:20)
--- NOTE | 2024-10-31 09:40 | P.PCN ---
Date of Procedure: 10/31/24 Preoperative Diagnosis: Blood in stool Constipation Postoperative Diagnosis: Internal hemorrhoids Procedure(s) Performed: Colonoscopy Anesthesia: MAC Surgeon: Annette Magallanes Pathology: none sent Condition: stable Disposition: same day Indications for Procedure: 59-year-old female presents today for colonoscopy. She is history of blood in her stool. She does also complain of constipation. She has had previous colonoscopy with no finding of polyps in the past. Plan is for evaluation with colonoscopy. Risks, benefits and alternatives were provided to the patient. Operative Findings: Internal hemorrhoids Description of Procedure: The patient was brought to the endoscopy suite and placed in left lateral decubitus position and adequate sedation was achieved using conscious sedation. Digital rectal exam was performed and mild internal hemorrhoids were palpated. An endoscope was then placed in the rectum and advanced to the cecum as identified by landmarks including the appendiceal orifice and the ileocecal valve. The prep was good. The colonoscope was then slowly withdrawn, examining for any mucosal abnormalities. The cecum, ascending, transverse, descending and sigmoid colon were visualized adequately. There were no large neoplastic lesions noted throughout the colon. No obvious polyps noted throughout the colon. No evidence of diverticulosis. Hemostasis was maintained. Retroflexion was performed in the rectum and internal hemorrhoid. Excess air was removed, the colonoscope withdrawn and the procedure terminated. The patient was then transferred to the recovery unit in stable condition. Repeat colonoscopy should be performed in 5 years.
[2024-10-31 09:46] VITALS: RESP 16
[2024-10-31 10:03] VITALS: BP 120/67; PULSE 67
== END 2024-10-31 10:16 | disposition home or self-care (01) ==
LOC: ORWHC2ENDO 08:02
PROVIDERS: ATTEND Surgery
DX: K64.8 Other hemorrhoids (principal); J45.909 Unspecified asthma, uncomplicated; K21.9 Gastro-esophageal reflux disease without esophagitis; F17.210 Nicotine dependence, cigarettes, uncomplicated; Z79.899 Other long term (current) drug therapy; Z79.51 Long term (current) use of inhaled steroids; Z88.6 Allergy status to analgesic agent
CPT/HCPCS: 45378; J0461; J2003; J2704; J1596